=== PATIENT | male | born 1960 | race Caucasian/White ===

== ENCOUNTER 2025-01-07 12:08 | Inpatient (IN) | payer OTHER, SELFPAY ==
[2025-01-07] VITALS (14 sets, daily range): BP systolic 95–143; BP diastolic 69–102; BMI 28.0
--- NOTE | 2025-01-07 09:01 | ED.GENMED ---
History of Present Illness
General
Chief Complaint: Chest Pain
Source: patient
Exam Limitations: none
Time Seen by Provider: 01/07/25 08:56
History of Present Illness
History of Present Illness:
See MDM
Past History
Past History
ED Past Medical History: Cancer and HTN
ED Past Surgical History: Orthopedic
Social History
Tobacco: Non-smoker
Alcohol: None
Phy Exam
Physical Exam
Physical Exam:
See MDM
Scores
Heart Score for Chest Pain Patients
STEMI patient?: Yes
Course
Orders/Labs/Results
Orders:
Orders
01/07/25
Electrocardiogram (*1) Stat
Reason for Study: Chest Pain
Comment: DONE
01/07/25 09:02
CMP [Comprehensive Metabolic Panel] Urgent
Complete Blood Count/With Diff Urgent
PT/INR [Prothrombin Time] Urgent
PTT Urgent
Troponin I Urgent
01/07/25 09:07
Aspirin Chewable [Low Strength Aspirin] 324 mg .ROUTE .STK-MED ONE
Heparin 5,000 units .ROUTE .STK-MED ONE
Nitroglycerin Sublingual [Nitrostat (Sublingual)] 0.4 mg .ROUTE .STK-MED ONE
Ticagrelor [Brilinta] 180 mg .ROUTE .STK-MED ONE
01/07/25 09:10
Fentanyl Citrate/Pf [Sublimaze] 100 mcg .ROUTE .STK-MED ONE
Heparin 10,000 units .ROUTE .STK-MED ONE
Heparin 1000 Units/500 ml [Heparin] 1,000 units in 500 ml .ROUTE .STK-MED
Lidocaine HCl/Pf [Xylocaine-Mpf 1% Vial] 50 mg .ROUTE .STK-MED ONE
Midazolam HCl [Versed] 2 mg .ROUTE .STK-MED ONE
Verapamil Injectable [Isoptin/Verapamil Injection] 5 mg .ROUTE .STK-MED ONE
01/07/25 09:11
Heparin Sodium,Porcine/Ns/Pf [Heparin 2000 Units/1000 ml] 2,000 unit in 1,000 ml .ROUTE .STK-MED
Nitroglycerin [Tridil] 1,500 mcg .ROUTE .STK-MED ONE
01/07/25 09:34
Eptifibatide [Integrilin] 20 ml .ROUTE .STK-MED
01/07/25 10:05
Furosemide [Lasix] 40 mg .ROUTE .STK-MED ONE
01/07/25 10:19
Lidocaine HCl/Pf [Xylocaine-Mpf 1% Vial] 100 mg .ROUTE .STK-MED ONE
01/07/25 10:26
Heparin Sodium,Porcine/Ns/Pf [Heparin 2000 Units/1000 ml] 2,000 unit in 1,000 ml .ROUTE .STK-MED
01/07/25 10:43
Bell Person Consult Routine
Consulting Provider: Darin Orellana
Was physician already notified: Yes
Reason for consult: acute STEMI, impella
01/07/25 11:03
Heparin 10,000 units .ROUTE .STK-MED ONE
01/07/25 11:32
Lidocaine HCl/Pf [Xylocaine-Mpf 1% Vial] 100 mg .ROUTE .STK-MED ONE
01/07/25 11:47
Nitroglycerin 100 mg/250 ml [Nitroglycerin Premix] 100 mg in 250 ml .ROUTE .STK-MED
01/07/25 12:05
Lidocaine HCl/Pf [Xylocaine-Mpf 1% Vial] 50 mg .ROUTE .STK-MED ONE
Abnormal Lab Results
01/07/25 01/07/25 01/07/25
09:02 09:33 09:42
WBC 65.9 H* 10^3/uL
(4.8-10.8)
RBC 4.37 L 10^6/uL
(4.70-6.10)
Hgb 12.1 L g/dL
(13.0-18.0)
Hct 36.5 L %
(39.0-52.0)
Abs Immat Gran (auto) 0.3 H 10^3/uL
(0-0.05)
Absolute Neuts (auto) 10.6 H 10^3/uL
(1.4-6.5)
Absolute Lymphs (auto) 53.3 H 10^3/uL
(1.2-3.4)
Absolute Monos (auto) 1.3 H 10^3/uL
(0.1-0.6)
Neutrophils % 16.0 L %
(42.2-75.2)
Lymphocytes % 80.9 H %
(20.5-51.1)
Carbon Dioxide 20 L mmol/L
(22-30)
BUN 26 H mg/dl
(9-20)
Glucose 144 H mg/dl
(70-99)
Troponin I 0.329 H* ng/ml
Total Protein 5.5 L g/dl
(6.3-8.2)
Albumin 3.4 L g/dl
(3.5-5.0)
POC ACT Low Range 221 H Seconds 324 H Seconds
(116-155) (116-155)
01/07/25 01/07/25 01/07/25
10:10 10:55 11:10
WBC
RBC
Hgb
Hct
Abs Immat Gran (auto)
Absolute Neuts (auto)
Absolute Lymphs (auto)
Absolute Monos (auto)
Neutrophils %
Lymphocytes %
Carbon Dioxide
BUN
Glucose
Troponin I
Total Protein
Albumin
POC ACT Low Range 265 H Seconds 205 H Seconds 256 H Seconds
(116-155) (116-155) (116-155)
01/07/25 01/07/25
11:27 11:45
WBC
RBC
Hgb
Hct
Abs Immat Gran (auto)
Absolute Neuts (auto)
Absolute Lymphs (auto)
Absolute Monos (auto)
Neutrophils %
Lymphocytes %
Carbon Dioxide
BUN
Glucose
Troponin I
Total Protein
Albumin
POC ACT Low Range 274 H Seconds 207 H Seconds
(116-155) (116-155)
01/07/25 09:02
01/07/25 09:02
Vital Signs
Initial and Last Documented VS:
Initial Vital Signs
Temp Pulse Resp BP Pulse Ox
97.7 F 85 20 143/102 97
01/07/25 08:54 01/07/25 08:54 01/07/25 08:54 01/07/25 08:54 01/07/25 08:54
Last Documented Vital Signs
Temp Pulse Resp BP Pulse Ox
98.8 F 71 15 110/74 91
01/08/25 12:00 01/08/25 12:10 01/08/25 12:10 01/08/25 12:00 01/08/25 12:10
MDM/Problems Addressed
Differential Diagnosis Includes:
HPI and MDM Narrative:
64-year-old male presenting with intermittent chest discomfort described as 'gas pain' for the past month or so. It is worse with exertion but tends to resolve after 10 minutes. Patient noted the same discomfort while at work today at 8 AM. He is
worried because he got more significant around 8:30 AM. He came to the emergency department and a screening EKG was done immediately which showed concern for STEMI. He was brought back to the emergency room immediately. A STEMI alert was called
immediately and case discussed with cardiology who came to bedside immediately. Patient given aspirin, Brilinta, heparin bolus and nitroglycerin. The nitroglycerin is helping with his symptoms.
I did call his Zohra and updated her
Physical exam
General: Well appearing and non-toxic
HEENT: protecting airway
Neck: appears supple
CV: No evidence of cyanosis. Regular rate and rhythm
Resp: No accessory muscle use
Abd: Non-distended
Extremities: No deformities
Neuro: alert
Psych: Normal affect
Skin: Intact
Problems Addressed including Acute and Chronic Conditions affecting care:
1. STEMI
Acuity: acute
Prognosis: unstable
Details: Patient given aspirin, Brilinta and heparin. Nitroglycerin is helping with symptoms. Cardiology will bring to Unmanned Equipment Operator
Differential Diagnosis (but not limited to): Noncardiac chest pain, STEMI, dissection
Testing considered: Chest x-ray
Drug therapy (if applicable): OTC meds, please see d/c instruction regarding Rx drugs
Amount and/or Complexity of Data Reviewed
Clinical info obtained from: Patient
External data reviewed: N/A
Labs I independently reviewed (but not limited to): Leukocytosis but this is expected given CLL history
Radiology: N/A
Pulse Ox: not hypoxic
EKG independently reviewed: Sinus rhythm, normal axis, ST elevation anteriorly with reciprocal changes inferiorly
Rubber Production Machine Operator: Sinus rhythm
Critical Care: The high probability of a clinically significant, sudden or life threatening deterioration of the cardiovascular system(s) required my full and direct attention, intervention and personal management. The aggregate critical care time
was 31 minutes. This time is in addition to time spent performing reported procedures but includes the following:
[x] Data Review and interpretation
[x] Patient assessment and monitoring of vital signs
[x] Documentation
[x] Medication orders and management
Risk of Complication:
Social Determinants of health: Good social support
Discussed with other providers: Physician Aide
Escalation of Care includes Admit/Obs: Given the STEMI, will admit to Unmanned Equipment Operator
Occasional wrong word or 'sound a like' substitutions may have occurred due to the inherent limitations of voice recognition software. Read the chart carefully and recognize, using context, where substitutions have occurred.
*Critical Care Note
Total Time (30-74mins, 75-104mins- exclusive of procedures): 31 min
ED Attending Note
-
Portions of this chart may have been created with voice recognition software.� Occasional wrong word or��sound alike� substitutions may have occurred due to the inherent limitations of voice recognition software.
Discharge Plan
Departure
Patient Disposition: [facility]
Date of Disposition: 01/07/25
Time of Disposition: 09:06
Presentation/result/management discussed w/ accepting MD/DO: Physician Aide
Discharge Problem:
ST elevation (STEMI) myocardial infarction
Interventions
Interventions:
*Risk Screen - Suicide Last Done: 01/07/25 09:09
*General Assessment Last Done: 01/07/25 09:05
*Neglect/Abuse Screening Last Done: 01/07/25 09:10
*ED- Fall Risk Assessment Last Done: 01/07/25 09:32
*ED COVID-19 Vaccine History Last Done: 01/07/25 09:01
*Nursing Disposition Last Done: 01/07/25 09:15
ED- Cardiac Assessment Last Done: 01/07/25 09:05
Discharge Date and Time
Discharge Date/Time: 01/07/25 09:15
[2025-01-07 09:25] LABS: ALT (SGPT) 17 U/L (0-50); AST (SGOT) 22 U/L (17-59); Albumin 3.4 g/dl (3.5-5.0); Alkaline Phosphatase 106 U/L (38-126); Blood Urea Nitrogen 26 mg/dl (9-20); Calcium 8.8 mg/dl (8.4-10.2); Carbon Dioxide 20 mmol/L (22-30); Chloride 107 mmol/L (98-107); Estimated Creatinine Clearance 60 ml/min; Glucose 144 mg/dl (70-99); Hematocrit 36.5 % (39.0-52.0); Hemoglobin 12.1 g/dL (13.0-18.0); Mean Corp Hgb Conc. 33.2 g/dL (33.0-37.0); Mean Corpuscular Hgb 27.7 pg (27.0-31.0); Mean Corpuscular Volume 83.5 fL (80.0-94.0); Mean Platelet Volume 9.4 fL (7.4-10.4); Platelet Count 296 10^3/uL (130-400); Red Blood Cell Count 4.37 10^6/uL (4.70-6.10); Red Cell Dist. Width 14.5 % (11.5-14.5); Sodium 137 mmol/L (135-145); Total Bilirubin 0.5 mg/dl (0.2-1.3); Total Protein 5.5 g/dl (6.3-8.2); White Blood Cell Count 65.9 10^3/uL (4.8-10.8); eGFR > 60.00
[2025-01-07 09:26] LABS: INR 0.98; PT 13.5 Sec (11.4-14.6)
[2025-01-07 09:27] LABS: APTT 25.1 Sec (23.4-35.0)
[2025-01-07 09:29] LABS: ACT-LR - POC 150 Seconds (116-155)
[2025-01-07 09:40] LABS: ACT-LR - POC 221 Seconds (116-155)
[2025-01-07 09:40] LABS: Troponin I 0.329 ng/ml
[2025-01-07 09:48] LABS: % Basophils 0.4 % (0-2); % Eosinophils 0.4 % (0-6); % Immature Granulocytes 0.4 % (0-0.5); % Lymphocytes 80.9 % (20.5-51.1); % Monocytes 1.9 % (1.7-9.3); Absolute Basophils 0.2 10^3/uL (0-0.2); Absolute Eosinophils 0.3 10^3/uL (0-0.7); Absolute Immature Granulocytes 0.3 10^3/uL (0-0.05); Absolute Lymphocytes 53.3 10^3/uL (1.2-3.4); Absolute Monocytes 1.3 10^3/uL (0.1-0.6); Absolute Neutrophils 10.6 10^3/uL (1.4-6.5); Nucleated Red Blood Cells % 0 % (-)
[2025-01-07 09:51] LABS: ACT-LR - POC 324 Seconds (116-155)
[2025-01-07 10:20] LABS: ACT-LR - POC 265 Seconds (116-155)
--- NOTE | 2025-01-07 10:21 | HPS.HSE ---
Family Physician
-
Family Physician: Margarte Bernal
Oncologist: Curry Jane MD ([facility])
Chief Complaint
-
Anterior/lateral STEMI
History of Present Illness
64 yo WM h/o CLL, HTN, non smoker, social ETOH, father with [place] @70. He has been having epigastric pain for the last 4 weeks, this morning at work ([employer]) the pain returned and did not resolve. On arrival to ER CP 8/ radiating to b/l UE/neck
with 2 sl nitro down to 5/10. EKG with anterior/lateral KULWINDER. He was given heparin, brilinta, ASA and brought urgently to research lab assistant.
Medical History
Past Medical History
Past Medical History: Reports Cancer (CLL stage 3, Rituxan x 6 cycles 2013, c/b glomerulonephritis and nephrotic range proteinuria), HTN and Other (Prot)
Past Surgical History: Reports None
Social History
Tobacco: Non-smoker
Alcohol: Occasional
Living: With Family
Family History
Family History: CAD (father [place] 70)
Allergies / Home Medications
Allergies reflects when Allergies were last updated in [employer].
Home Medications with original date entered in [employer]
Allergy/Medication List:
Allergies
Allergy/AdvReac Type Severity Reaction Status Date / Time
No Known Allergies Allergy Unverified 01/07/25 08:53
�Medication �Instructions �Recorded �Confirmed �Type
Lactobacillus 1 cap PO DAILY 01/07/25 01/07/25 History
acidophil,plantar-Bifido no.7 15
billion cell capsule
allopurinol 200 mg tablet 200 mg PO DAILY 01/07/25 01/07/25 History
ascorbic acid (vitamin C) 1,000 mg 1 g PO DAILY 01/07/25 01/07/25 History
tablet (Vitamin C)
cholecalciferol (vitamin D3) 10 10 mcg PO DAILY 01/07/25 01/07/25 History
mcg (400 unit) capsule (Vitamin D3)
fish, borage, flaxseed oils-omega 1 cap PO DAILY 01/07/25 01/07/25 History
3,6,9 comb no.1 1,200 mg capsule
geriatric multivitamin-min 1 tab PO DAILY 01/07/25 01/07/25 History
hydralazine 25 mg tablet 25 mg PO TID 01/07/25 01/07/25 History
omega-3s 300 im-qfo-dvn-other 1 cap PO DAILY 01/07/25 01/07/25 History
sixet4s-etgm oil 1,000 mg capsule
([place]-3 Fish Oil)
omeprazole 10 mg capsule,delayed 10 mg PO DAILY 01/07/25 01/07/25 History
release
valsartan 160 mg tablet 160 mg PO DAILY 01/07/25 01/07/25 History
Review of Systems
-
Cardiac: Reports Chest Pain (03/13 on arrival to research lab assistant)
Physical Exam
Vital Signs
Vital Signs
Temp Pulse Resp BP Pulse Ox
97.7 F 81 15 129/96 95
01/07/25 08:54 01/07/25 09:01 01/07/25 09:01 01/07/25 09:12 01/07/25 09:05
Physical Exam
General: Pain (deferred as pt being preped and drapped for emergent procedure)
Laboratory Results
-
01/07/25 09:02
01/07/25 09:02
Laboratory Results
PT 13.5 Sec (11.4-14.6) 01/07/25 09:02
INR 0.98 01/07/25 09:02
APTT 25.1 Sec (23.4-35.0) 01/07/25 09:02
Total Bilirubin 0.5 mg/dl (0.2-1.3) 01/07/25 09:02
AST 22 U/L (17-59) 01/07/25 09:02
ALT 17 U/L (0-50) 01/07/25 09:02
Alkaline Phosphatase 106 U/L (38-126) 01/07/25 09:02
Troponin I 0.329 ng/ml H* 01/07/25 09:02
Data Reviewed
-
Medical Tests (Nuc Med, Echo, EKG etc): Report Reviewed by me
Impression/Plan
-
IMPRESSION:
Acute anterior lateral STEMI
occluded proximal LAD and RI post PCI
CLL
HTN
Elevated glucose
PLAN:
Admit IVU post procedure
serial troponin to peak
Echo today
DAPT ASA/Brilinta
initiate low dose BB add ACEi/ARB depending on EF
Check CVE, intiate high intensity statin
elevated glucose, check A1c
Cardiac rehab c/s
[2025-01-07 11:03] LABS: ACT-LR - POC 205 Seconds (116-155)
[2025-01-07 11:15] LABS: ACT-LR - POC 256 Seconds (116-155)
[2025-01-07 11:36] LABS: ACT-LR - POC 274 Seconds (116-155)
[2025-01-07 11:50] LABS: ACT-LR - POC 207 Seconds (116-155)
[2025-01-07 13:19] LABS: ACT-LR - POC 234 Seconds (116-155)
[2025-01-07 13:28] LABS: B.E. -0.3 mmol/L; HCO3 22.3 mmol/L (21-28); O2 Saturation % 97.9 % (94-98); PCO2 30 mmHg (35-48); PO2 82 mmHg (83-108); pH 7.48 (7.35-7.45)
[2025-01-07 13:29] LABS: Hematocrit 36.1 % (39.0-52.0); Hemoglobin 11.6 g/dL (13.0-18.0); Mean Corp Hgb Conc. 32.1 g/dL (33.0-37.0); Mean Corpuscular Hgb 27.3 pg (27.0-31.0); Mean Corpuscular Volume 84.9 fL (80.0-94.0); Mean Platelet Volume 9.5 fL (7.4-10.4); O2 Therapy 4L NC; Platelet Count 232 10^3/uL (130-400); Red Blood Cell Count 4.25 10^6/uL (4.70-6.10); Red Cell Dist. Width 14.6 % (11.5-14.5); White Blood Cell Count 61.8 10^3/uL (4.8-10.8)
--- NOTE | 2025-01-07 13:36 | ITS.CL.CATH ---
Dye Penetrant Testing Technician - Catheterization
Cardiac Catheterization
Procedure Report:
RIGHT AND LEFT HEART STUDY WITH CORONARY INTERVENTION
Date of Procedure: January 07, 2025
Referring: Dr. Rafiq Carter, [facility] Emergency Department
PROCEDURES:
1. Left heart catheterization with coronary angiography
2. Successful stenting at the ostium of the LAD with a 3.25 x 28 mm Xience stent and successful placement of an overlapping 3.5 x 18 mm distal to the initial stent
3. Successful stenting of ostial ramus intermedius with a 3.5 x 12 mm [place] stent
4. Successful stenting of mid left main with a 4.0 x 12 mm Christopher stent that was implanted at 20 nancy and postdilated with a 5.0 mm noncompliant balloon to high pressures
5. Placement of a Impella CP via right common femoral artery
6. Intravascular ultrasound with Eyak-Eye IVUS of left main and left anterior descending
INDICATION: This is a 64-year-old gentleman with a past medical history notable for CLL and hypertension. He had experienced epigastric discomfort over the past month or so and was actually scheduled to see GI. This morning he developed recurring
epigastric discomfort with worsened symptoms that did not spontaneously resolve. He presented to [facility] with an electrocardiogram suggestive of an evolving anterolateral wall myocardial infarction and he was referred for emergent
coronary angiography.
ACCESS: Right radial artery, 6 [place] sheath. An Impella CP was placed during the procedure from the right common femoral artery
HEMODYNAMICS : mmHg
AO (s/d, m) : 133/81, 69
LV (s/d) : 123/31
LVEDP : 55
CORONARY FINDINGS
Dominance: Left
LEFT MAIN: Large left main. Imaging in RO cranial view is notable for contrast filling of a possible disrupted plaque.
LEFT ANTERIOR DESCENDIN% occluded proximally with the distal vessel noted to fill via left to left and faint right to left collaterals
RAMUS: 95% ostial stenosis with filling defect suggestive of thrombus. There is SELVIN I flow distally
CIRCUMFLEX: Large-caliber dominant circumflex
RIGHT CORONARY ARTERY: Subselective cannulation and critically ill patient
VENTRICULOGRAPHY: Not done
ANGIOPLASTY PROCEDURE DETAIL: Immediately after obtaining the diagnostic angiogram the decision was made to proceed with revascularization of culprit stenosis in the proximal LAD and ramus. The origin of the left main was cannulated with a 6 [place]
EBU 3.75 guiding catheter. Intravenous heparin was administered and double bolus Integrilin was given according to standard double bolus protocol. The ACT was monitored throughout the procedure.
A BMW guidewire crossed the occluded segment of the proximal LAD with a mild degree of difficulty and was advanced into the distal vessel. Balloon predilation was performed with a 2.0 mm balloon and anterograde flow was restored into the mid LAD.
The apical LAD was 100% occluded beyond a terminal diagonal branch with faint filling of the distal vessel from left to left collaterals. A 3.25 x 28 mm Xience stent was advanced over the guidewire position with angiographic and fluoroscopic
guidance. The stent was implanted at nominal pressures. A second BMW guidewire was then advanced across the ostial stenosis in the ramus intermedius and the ostium of this vessel was stented with a 3.5 x 12 mm Xience stent at nominal pressures.
SELVIN-3 grade flow was restored into the intermedius and LAD.
The patient was complaining of being very short of breath on 100% nonrebreather with O2 sats 88-90%. His LVEDP measured 55 mmHg. At this point we elected to place an Impella for hemodynamic support even though systolic blood pressures remained in
the low 100's. Anesthesia was notified and provided additional airway monitoring and support.
Arterial access with ultrasound guidance and micropuncture. Angiography through the micropuncture catheter revealed a large iliofemoral system. A 6 [place] sheath was inserted. A stiff J-tip 0.035 guidewire was advanced into the descending aorta.
The right common femoral arteriotomy site was serially dilated and was followed by placement of the 14 [place] Impella sheath. A pigtail catheter was then advanced over the stiff wire and positioned just above the aortic valve. The aortic leaflets
were crossed and a pigtail catheter was advanced into the mid left ventricle. A 0.018 inch support wire with a very generous curved tip was then advanced the pigtail catheter and into the mid left ventricle. The pigtail catheter was removed. An
Impella CP catheter was then brought to the table and advanced over the 0.018 wire to the mid left ventricle. The Impella later was activated providing immediate hemodynamic support.
Attention was then turned back to the LAD. Intravascular ultrasound was performed using an Eyak eye catheter that was advanced across the stented segment in the LAD and into the mid LAD beyond the stents. There was a significant plaque burden in
significant luminal narrowing in the mid LAD beyond the stented segment. The LAD stents were well opposed but undersized. The stent appeared to extend back to the ostium of the LAD. The proximal LAD luminal dimensions measured up to 4.5 mm while
the distal LAD luminal diameter measured up to 4 mm. The decision was made to place another stent distal to the ostial to mid LAD stent given the large plaque burden small lumen noted in the mid LAD. A 3.5 x 18 mm Xience stent was positioned
overlapping and distal to the more proximal LAD stent wire was deployed at nominal pressures. That stent was postdilated with a 3.5 mm noncompliant balloon while the more proximal stents were postdilated with a 4.0 mm noncompliant balloon to high
pressures.
The linear filling defect at the Of the left main persisted and ultimately decision was made to cover that segment with a 4.0 x 8 mm [place] stent in the left main that was implanted at high pressures and postdilated with a 5.0 x 12 mm noncompliant
balloon to high pressures with a nice angiographic result
At this point, venous access was obtained and a right heart catheterization was performed as outlined below.
HEMODYNAMICS : mmHg
RA (m) : 18
RV (s/d) : 54/14, 20
PA (s/d, m) : 50/32, 38
PCWP (m) : 35
Cardiac Output: 4.3 L / min and Cardiac Index: 2.1 L/ min / m-2
RADIATION SUMMARY: Fluoro Time (min): 33, Dose (mGy): 3765, DAP (Gy.cm2) : 172
CONCLUSIONS
1. Acute evolving anterior lateral wall myocardial infarction. 100% occlusion of the proximal LAD and thrombus in the ostial ramus with 95% stenosis. Successful stenting of the LAD with overlapping 3.25 x 28 mm and 3.5 x 18 mm Xience stents. The
LAD stents were post dilated distally to high pressures with a 3.5 mm NC balloon and throughout the proximal LAD with a 4.0 mm NC balloon. The ostial ramus was stented with a 3.5 mm NC balloon.
2. Cardiogenic shock with respiratory failure and reduced cardiac output / index. Successful placement of Impella CP via right common femoral access.
RECOMMENDATIONS
1. Will leave Impella at P5 overnight
2. Uninterrupted dual antiplatelet therapy
3. Trend serial troponin levels. Obtain HgbA1c and fasting lipid profile
4. Echocardiogram
5. Further management decisions will be made over the next several days with addition of guideline directed medical therapy for his coronary artery disease and presumed LV dysfunction
[2025-01-07 13:38] LABS: Fibrinogen 602 MG/DL (199-459); PT 14.7 Sec (11.4-14.6)
[2025-01-07 13:41] LABS: Lactic Acid 1.4 mmol/L (0.7-2.0)
[2025-01-07 13:45] LABS: ALT (SGPT) 122 U/L (0-50); Albumin 3.2 g/dl (3.5-5.0); Alkaline Phosphatase 105 U/L (38-126); Blood Urea Nitrogen 28 mg/dl (9-20); Calcium 8.4 mg/dl (8.4-10.2); Carbon Dioxide 29 mmol/L (22-30); Chloride 103 mmol/L (98-107); Estimated Creatinine Clearance 56 ml/min; Glucose 151 mg/dl (70-99); Magnesium 1.7 mg/dl (1.6-2.3); Potassium 3.8 mmol/L (3.5-5.1); Sodium 136 mmol/L (135-145); Total Bilirubin 0.7 mg/dl (0.2-1.3); Total Protein 5.5 g/dl (6.3-8.2); eGFR 56.48
[2025-01-07] MEDS: NSS 500 VEN SHEATH (14:08)
--- NOTE | 2025-01-07 14:08 | W.PN.UPDATE ---
Update Note
Progress Note Update
Checked on patient in CVICU. Impella running at P5. Nitro gtt running at 15. BP 130/88. No chest pain. Bedside echo being done now. Potassium 3.8 and magnesium 1.7, ordered KCl 40 meq and magnesium oxide 500 mg x1 now. Initial Troponin 0.329 and 2nd
Troponin pending. Cre was 1.3 pre-cath and is now 1.4. Lasix 40 mg IV BID ordered, cath report pending.
--- NOTE | 2025-01-07 14:14 | PTCARENOTE ---
assumed care of pt from CCL RN, Pt is AA0x4, sinus rhythm on tele w HR 90-100, pt denies CP, + peripheral pulses, no edema noted. Right femoral impella w drainage to dressing, dressing changed by Dr. Sanchez. Impella set to P7 then dropped to P5 per
Dr. Sanchez. Femoral arterial sheath leveled and zeroed, BP 120's-150's/70's, right femoral venous sheath w swan in place, CO 6.71 CI 3.20, CVP 2. Lungs diminished, dry cough noted. Pox 96% on 4L NC. +bs, denies nausea, pt voided clear yellow. PIV x2
to left arm. Post procedure EKG, labs, CXR and echo completed. Family updated. Plan of care reviewed w the pt and questions encouraged.
[2025-01-07 14:20] LABS: AST (SGOT) 1316 U/L (17-59); LDH 1875 U/L (120-246)
--- NOTE | 2025-01-07 14:26 | CON.INTV ---
Consultation
Consultation Request
Date/Time Consultation Requested: 01/07/2025
Date/Time Consultation Performed: 01/07/2026 3 pm
Requesting Provider: Bronwyn Reynolds
Performing Provider: Darin Orellana
Reason for Consultation: Acute [facility]
Medical History
-
Chief Complaint: Upper abdomen bloating
History of Present Illness:
Very pleasant 69-year-old gentleman with history of CLL, not on any current treatment, presented to the emergency room with recurrent episodes of upper abdominal pain, feeling bloated. Patient reportedly having these episodes over last few weeks
but they will be intermittent. Today he developed the episode and it did not improve and subsequently patient developed diaphoresis and decided to seek medical care. In the emergency room patient found to have anterior lateral ST elevation and was
taken to [facility]. Postprocedure patient was brought to cardiovascular ICU with Impella device in place. Press Operator [employer] consultation was requested for further management.
Past Medical History
Past Medical History: HTN and Other (GERD, CLL)
Social History
Tobacco: Non-smoker
Alcohol: Other (Rare use of alcohol.)
Family History
Family History: Other (Father had history of myocardial infarction at age 70)
Allergies / Home Medications
Allergies
Allergy/AdvReac Type Severity Reaction Status Date / Time
No Known Allergies Allergy Unverified 01/07/25 08:53
Review of Systems
-
Hematologic/Lymphatic: Other (All 14 systems reviewed and negative except as stated above in the history of present illness.)
Vitals / Labs / Diagnostic Testing
Vital Signs
Temp Pulse Resp BP Pulse Ox
99.1 F 96 20 130/88 97
01/07/25 14:00 01/07/25 14:02 01/07/25 14:02 01/07/25 14:02 01/07/25 14:02
Lab Data
01/07/25 13:16
01/07/25 13:16
Laboratory Results
01/07/25 01/07/25
09:02 13:16
PT 13.5 14.7 H
INR 0.98 1.10
APTT 25.1
pH 7.48 H
pCO2 30 L
pO2 82 L
HCO3 22.3
O2 Delivery Level 4l nc
Diagnostic Testing:
Physical Exam
-
HEENT: Normocephalic
Cardiovascular: S1/S2
Respiratory: Clear
GI: Soft
Neurology: Awake
Skin: Warm
General: Comfortable
Assessment
-
#1. Acute ST elevation VA
-S/p PCI, currently Impella device in place, nitro drip infusing
-Patient chest pain-free during evaluation
-Management per cardiology service, currently on aspirin, Brilinta and statins
#2. History of CLL
-Patient reports prior treatment and currently being monitored closely
-Continue to monitor white count
-Patient lying flat in bed, in no acute distress
-Saturating close to 100% on 2 L
-Hemodynamically stable, not on any pressor therapy
-Impella in place
-Patient is chest pain-free
-No prior known history of pulmonary disease
-Use inhalers on an as-needed basis
We will follow
Critical Care time 30 mins -- The patient is admitted for acute critical illness for the treatment of vital organ failure and/or prevention of further life-threatening conditions. Total care includes time spent in review of history, physical exam,
medications, hemodynamic/ventilator parameters, laboratory data, imaging and discussion with house staff, pharmacy, respiratory therapy, test architect, and nursing.
[2025-01-07 14:39] LABS: Troponin I > 400.000 ng/ml
[2025-01-07 15:04] LABS: ACT-LR - POC 153 Seconds (116-155)
[2025-01-07] MEDS: LASIX 40 MG IV (15:15)
[2025-01-07] MEDS: MAGNESIUM OXIDE 500 MG PO (15:15)
[2025-01-07] MEDS: KCL 40 MEQ PO (15:15)
[2025-01-07] MEDS: HEPARIN 25000 UNITS/250 ML IV (15:31)
[2025-01-07] MEDS: SODIUM BICARBONATE 1025 MEQ INF CATH (15:37)
--- NOTE | 2025-01-07 16:22 | CM ---
Chart reviewed. Patient is independent of ADLS, lives with his in a 2 [address], 4 KULWINDER, 0 DME. Plan is for the patient to return home. CM to follow
--- NOTE | 2025-01-07 16:23 | CM ---
Pricing on Brilinta through the patient's [facility], ID# [id number] is $50 for a 30 day supply. The patient qualifies for a $5 copay card. I will place a free 30 day coupon in the patient's red discharge folder. Brilinta is in stock at the
patient's [facility].
--- NOTE | 2025-01-07 16:30 | PTCARENOTE ---
Patient reassessed. NSR BP 122/79 HR 75 POX 96% 4L NC. BM noted. Voiding clear yellow urine. TR band removed @ 1630 w/o complication. Impella maintained at P-5 as ordered.
[2025-01-07] MEDS: LIPITOR 80 MG PO (19:03)
[2025-01-07] MEDS: LOPRESSOR 12.5 MG PO (19:48)
[2025-01-07] MEDS: BRILINTA 90 MG PO (19:48)
[2025-01-07] MEDS: MORPHINE SULFATE 2 MG IV (19:49)
--- NOTE | 2025-01-07 20:30 | PTCARENOTE ---
Patient received resting in bed. Patient A+A+Ox3. No neurological deficits noted. IV Morphine 2mg for c/o 10 lower back pain - Positive relief provided. O2 at 3L via NC. SpO2 97%. Lungs clear. No adventitious breath sounds noted. Sinus
Rhythm. Occasional PVC's. Heart rate 70's. Impella Ventricular Assist Device intact - Assessments as documented. Patient with no c/o chest pain, pressure or discomfort. Normoactive bowel sounds. No BM. No c/o nausea. No vomiting. Voiding
yellow, clear urine. Right femoral Cordis/[place]/A-Line - A-Line, PAP, CVP - Pressure bag/Saline flush - Flush without difficulty - Zeroed and calibrated - Waveforms within normal limits. C.O. 5.72 C.I. 2.72 SVR 1160 PAP 41/19 (26) CVP 4.
Right femoral dressing intact - Old drainage noted under dressing. Bedrest. Right leg straight at all times. Positive right Dorsalis pedis pulse. No c/o pain, discomfort, numbness or tingling to right lower extremity. Right wrist - s/p TR Band
- Slightly edematous with ecchymosis - Positive right radial pulse - No c/o pain, discomfort, numbness or tingling - Positive circulation, sensation and mobility to right upper extremity. Assessment as documented.
--- NOTE | 2025-01-07 20:50 | PTCARENOTE ---
Patient's manager cardiac cath displaying 8 beat run VT. Heart rate 80's. Blood pressure 113/83 (94). Patient resting in bed. No c/o chest pain, pressure or discomfort. Assessment as documented.
[2025-01-07 21:06] LABS: B.E. 0.7 mmol/L; HCO3 24.2 mmol/L (21-28); Ionized Calcium 1.15 mMOL/L (1.15-1.33); O2 Saturation % 99.3 % (94-98); PCO2 34 mmHg (35-48); PO2 123 mmHg (83-108); Potassium 3.9 mMOL/L (3.5-5.1); pH 7.46 (7.35-7.45)
[2025-01-07 21:09] LABS: Hematocrit 33.3 % (39.0-52.0); Hemoglobin 11.1 g/dL (13.0-18.0); Mean Corp Hgb Conc. 33.3 g/dL (33.0-37.0); Mean Corpuscular Hgb 28.2 pg (27.0-31.0); Mean Corpuscular Volume 84.5 fL (80.0-94.0); Mean Platelet Volume 9.4 fL (7.4-10.4); Platelet Count 225 10^3/uL (130-400); Red Blood Cell Count 3.94 10^6/uL (4.70-6.10); Red Cell Dist. Width 14.6 % (11.5-14.5); White Blood Cell Count 54.1 10^3/uL (4.8-10.8)
[2025-01-07 21:17] LABS: APTT 30.6 Sec (23.4-35.0); PT 14.7 Sec (11.4-14.6)
[2025-01-07 21:19] LABS: Lactic Acid 0.8 mmol/L (0.7-2.0)
[2025-01-07 21:25] LABS: ALT (SGPT) 150 U/L (0-50); Albumin 2.7 g/dl (3.5-5.0); Alkaline Phosphatase 82 U/L (38-126); Blood Urea Nitrogen 28 mg/dl (9-20); Calcium 8.2 mg/dl (8.4-10.2); Carbon Dioxide 27 mmol/L (22-30); Chloride 104 mmol/L (98-107); Estimated Creatinine Clearance 60 ml/min; Glucose 128 mg/dl (70-99); Potassium 3.9 mmol/L (3.5-5.1); Sodium 133 mmol/L (135-145); Total Bilirubin 0.6 mg/dl (0.2-1.3); Total Protein 4.4 g/dl (6.3-8.2); eGFR > 60.00
[2025-01-07] MEDS: MYLICON 160 MG PO (21:25)
--- NOTE | 2025-01-07 21:30 | PTCARENOTE ---
PTT 30.6. IV Heparin gtt rate increased by 200 units/hr per protocol for Impella. Now infusing at 900 units/hr (9 ml/hr). PTT 6hrs after rate change. No further changes from previous assessment.
[2025-01-07 21:54] LABS: Troponin I > 400.000 ng/ml
[2025-01-07 22:04] LABS: AST (SGOT) 1410 U/L (17-59)
[2025-01-07 22:05] LABS: LDH 2355 U/L (120-246)
[2025-01-07] MEDS: KCL 20 MEQ PO (22:35)
[2025-01-07] MEDS: CALCIUM GLUCONATE 100 IV (22:35)
--- NOTE | 2025-01-07 23:00 | PTCARENOTE ---
Labs sent. K 3.9 KCL 20 mEq PO ordered by PA and given without difficulty. Ionized Calcium 1.15 - Calcium Gluconate 2 gram/100 ml IV ordered by PA and administered without difficulty. C.O. 5.69 C.I. 2.71 SVR 1209 PAP 46/25 (32) CVP 5.
Patient resting in bed listening to music. Assessment/Interventions as documented.
[2025-01-07] MEDS: ROXICODONE 5 MG PO (23:03)
[2025-01-07] MEDS: MAALOX 30 ML PO (23:29)
[2025-01-07] MEDS: PEPCID 20 MG PO (23:34)
[2025-01-08] VITALS (29 sets, daily range): BP systolic 95–143; BP diastolic 68–100; BMI 27.8
[2025-01-08] MEDS: MORPHINE SULFATE 2 MG IV ×4 (00:29→13:14)
--- NOTE | 2025-01-08 00:30 | PTCARENOTE ---
Patient A+A+Ox3. No neurological deficits noted. Impella intact. Patient with c/o upset stomach - Maalox 30 ml PO and Pepcid 20 mg PO ordered by PA and given without difficulty. Roxicodone 5 mg PO for pain management - Lower back pain. C.O.
6.44 C.I. 3.07 SVR 1006 PAP 53/24 (34) CVP 5.
Assessment/Interventions as documented.
[2025-01-08] MEDS: ROXICODONE 5 MG PO ×3 (03:03→13:13)
[2025-01-08] MEDS: NSS 500 VEN SHEATH (03:05)
--- NOTE | 2025-01-08 03:15 | PTCARENOTE ---
IV morphine 2mg and Roxicodone 5 mg PO for pain management - Lower back pain. No c/o chest pain, pressure or discomfort. Patient A+A+Ox3. No neurological deficits noted. C.O. 6.15 C.I. 2.93 SVR 1157 PAP 49/21 (31) CVP 5.
Assessment/Interventions as documented.
[2025-01-08 04:19] LABS: Hematocrit 31.2 % (39.0-52.0); Mean Corp Hgb Conc. 32.1 g/dL (33.0-37.0); Mean Corpuscular Hgb 27.5 pg (27.0-31.0); Mean Platelet Volume 9.6 fL (7.4-10.4); Platelet Count 225 10^3/uL (130-400); Red Blood Cell Count 3.63 10^6/uL (4.70-6.10); Red Cell Dist. Width 14.6 % (11.5-14.5); White Blood Cell Count 56.8 10^3/uL (4.8-10.8)
[2025-01-08 04:34] LABS: INR 1.11; PT 14.8 Sec (11.4-14.6)
[2025-01-08 04:35] LABS: APTT 34.9 Sec (23.4-35.0); Fibrinogen 580 MG/DL (199-459)
[2025-01-08 04:37] LABS: D-Dimer 1.21 ug/mlFEU (0.00-0.50)
[2025-01-08 04:38] LABS: Lactic Acid 0.7 mmol/L (0.7-2.0)
[2025-01-08 05:01] LABS: ALT (SGPT) 135 U/L (0-50); AST (SGOT) 1036 U/L (17-59); Albumin 2.6 g/dl (3.5-5.0); Alkaline Phosphatase 75 U/L (38-126); Blood Urea Nitrogen 30 mg/dl (9-20); Calcium 8.6 mg/dl (8.4-10.2); Carbon Dioxide 29 mmol/L (22-30); Chloride 104 mmol/L (98-107); Estimated Creatinine Clearance 56 ml/min; Glucose 124 mg/dl (70-99); HDL Cholesterol 39 mg/dl; LDH 2252 U/L (120-246); LDL Cholesterol, Calculated 83 mg/dl; Magnesium 1.8 mg/dl (1.6-2.3); Potassium 4.1 mmol/L (3.5-5.1); Sodium 133 mmol/L (135-145); Total Bilirubin 0.5 mg/dl (0.2-1.3); Total Cholesterol 142 mg/dl (50-199); Total Protein 4.4 g/dl (6.3-8.2); Triglyceride 103 mg/dl (10-149); Very Low Density Lipoprotein 20 mg/dl (0-30); eGFR 56.48
[2025-01-08] MEDS: MAGNESIUM OXIDE 500 MG PO (06:03)
--- NOTE | 2025-01-08 06:30 | PTCARENOTE ---
Patient resting in bed, dozing intermittently. No c/o pain or discomfort. Most recent PTT 34.9 - IV Heparin rate increased by 200 units/hr - Now infusing at 1100 units/hr (11 ml/hr). MAG 1.8 - Magnesium 500 mg PO ordered and given without
difficulty. C.O. 6.38 C.I. 3.04 SVR 953 PAP 57/27 (38) CVP 9. Assessment/Interventions as documented.
[2025-01-08] MEDS: BRILINTA 90 MG PO ×2 (07:21→20:39)
[2025-01-08] MEDS: PROTONIX 40 MG PO (07:21)
[2025-01-08] MEDS: LASIX 40 MG IV ×2 (07:22→14:15)
[2025-01-08] MEDS: LOW STRENGTH ASPIRIN 81 MG PO (07:22)
[2025-01-08] MEDS: PEPCID 20 MG PO (07:44)
[2025-01-08] MEDS: LOPRESSOR 12.5 MG PO ×2 (07:44→20:39)
[2025-01-08 07:49] LABS: % Basophils 0.2 % (0-2); % Immature Granulocytes 0.5 % (0-0.5); % Monocytes 3.8 % (1.7-9.3); % Neutrophils 23.5 % (42.2-75.2); Absolute Basophils 0.1 10^3/uL (0-0.2); Absolute Immature Granulocytes 0.3 10^3/uL (0-0.05); Absolute Lymphocytes 40.9 10^3/uL (1.2-3.4); Absolute Monocytes 2.1 10^3/uL (0.1-0.6); Absolute Neutrophils 13.3 10^3/uL (1.4-6.5); Nucleated Red Blood Cells % 0 % (-)
--- NOTE | 2025-01-08 08:00 | PTCARENOTE ---
Patient relieved from RN @0700. Patient lying in bed w/ call bed in reach. AAOx3. NSR w/ occasional PVC's and PAC's. Heart sounds audible. BP 108/78 HR 70's. PAP 67/29 CVP 9. Radial and pedal pulses present bilaterally. trace edema on right
hand noted. Right femoral venous sheath and Impella CP @ P-[address] POX 93% 2L NC. Lungs clear and diminished in bases bilaterally. Bowel sounds hyperactive. Patient complains of gas Voiding clear yellow urine in urinal. Right groin
puncture dressing intact w/ small old drainage. Right femoral Cordis/[place]/A-line in place. Left hand and AC PIV patent and intact. Heparin infusing per protocol. Patient complains of pain 8/10 on lower back. 5 mg Zandra given see MAR for details.
Plan of care reviewed w/ patient and questions encouraged.
--- NOTE | 2025-01-08 09:33 | W.PN.CARDCBS ---
Addendum entered and electronically signed by Ivis Fan PA-C 01/08/25 16:05:
Pt also has diagnosis of acute systolic heart failure
Addendum entered and electronically signed by Axel Dukes MD 01/08/25 11:18:
64-year-old man with CLL, hypertension, GERD, gout admitted with acute anterior NC and cardiogenic shock necessitating primary PCI and Impella placement. Troponin greater than 400.
Cardiac catheterization 01/07/2025: LVEDP 55, possible disrupted left main plaque, 100% proximal LAD, distal left to left and right to left collaterals, 95% ostial ramus with thrombus, dominant circumflex, no obvious circumflex disease, overlapping
3.25 and 3.5 Xience stents to LAD, stent to ostial ramus, Impella placed. Mid to distal LAD was probably APPLICATIONS MANAGER and appears to be not amenable to revascularization. Suspected dissection of left main
He is comfortable at present, some back pain
Medications: IV nitro, IV heparin, Brilinta 90 twice daily, aspirin 81 mg a day, metoprolol tartrate 12.5 twice daily, pantoprazole, furosemide 40 IV twice daily, atorvastatin 80 mg a day on hold, Pepcid 20 mg a day
Impella at P5, 110/72, pulse 74, respiratory 13, 37.1, pulmonary artery systolic pressure 40s to 50s, diastolic 17-28, cardiac index as of 915 - 2.5, respiratory rate 12, no distress, lungs clear, regular rate and rhythm, pulses palpable right
groin intact, pulses of right lower extremity are very good, no murmurs
ECG anterior NC, long QT, T wave inversions with some ST elevation in V2-V4, biatrial enlargement
White count 56.8 with CLL, hemoglobin 10 platelets 225, ABG last night 7.46, pCO2 34, pO2 123, bicarb 24, mixed venous gas pending, sodium 133, BUN/creatinine 31.4, unchanged, ALT 135, AST 1036, was 1410, troponin 359 had been 400 x 2, was 0.3 on
admission, LDL is 83
Echo: EF 20-25%, intraventricular thrombus not excluded, all in place, MAC, mild aortic regurgitation, normal right heart, could not determine pulmonary artery pressure apex and periapical segments akinetic severe hyporemaining
Impression:
Acute ST segment elevation NC with occluded proximal LAD at subtotally occluded ramus, presumed APPLICATIONS MANAGER of mid LAD, left dominant
Cardiogenic shock, improved but with Impella in place
Hypertension
Gout
Hyperlipidemia
CLL
Plan:
At present he looks very well, but with Impella at P5 and pulmonary hypertension with elevated pulmonary artery diastolic pressure
Will discuss with interventional cardiology as to duration of Impella support.
Will slowly try to initiate GDMT
Okay to continue atorvastatin, AST is probably cardiac rather than hepatic in origin.
Continue heparin, IV nitro, etc.
Original Note:
Today's Communication / Plan
-
Continue IV heparin, dual antiplatelet therapy, beta-saravanan
Attempt to wean Impella as hemodynamics allow
Eventual GDMT as blood pressure and renal function allow
Close monitoring of laboratory studies, hemoglobin, electrolytes
Continue to monitor and trend troponin
Hold atorvastatin secondary to LFT abnormality
Impression / Plan
-
Family Physician: Margaret Bernal
Oncologist: Curry Jane MD ([facility])
Care Professional: None prior to admission, initial consult Axel Sanchez
Impression:
Presented 01/07/2025 with waxing and waning epigastric discomfort and chest pain
Acute ST elevation anterolateral wall NC
s/p mid left main with a 4.0 x 12 mm Brighton stent (01/07/2025)
s/p ostial LAD 3.25 x 28 mm Xience stent and overlapping 3.5 x 18 mm distal to the initial stent (01/07/2025)
s/p ostial ramus intermedius with a 3.5 x 12 mm Christopher stent (01/07/2025)
Impella device implant 01/07/2025
Significantly elevated troponin, greater than 400
Ischemic cardiomyopathy, EF 20 to 25%
Elevated LFTs
CLL stage 3, Rituxan x 6 cycles 2013
Hypertension
GERD
Gout
Cardiac catheterization 01/07/2025: Dominance: Left. LEFT MAIN: Large left main. Imaging in RO cranial view is notable for contrast filling of a possible disrupted plaque, s/p mid left main with a 4.0 x 12 mm Brighton stent.
LEFT ANTERIOR DESCENDIN% occluded proximally with the distal vessel noted to fill via left to left and faint right to left collaterals, s/p ostial LAD 3.25 x 28 mm Xience stent and overlapping 3.5 x 18 mm distal to the initial stent
RAMUS: 95% ostial stenosis with filling defect suggestive of thrombus. s/p ostial ramus intermedius with a 3.5 x 12 mm Brighton stent
CIRCUMFLEX: Large-caliber dominant circumflex
RIGHT CORONARY ARTERY: Subselective cannulation and critically ill patient
HEMODYNAMICS : mmHg AO (s/d, m) : 133/81, 69; LV (s/d) : 123/31; LVEDP : 55
Echo 01/07/2025: EF 20 to 25%, thrombus adherent to mid inferoseptal and mid inferior wall cannot be excluded. Impella in place, 3.7 cm from leaflets. Mild AI with indwelling Impella
Plan:
Presented 01/07/2025 with waxing and waning epigastric discomfort and chest pain and was found to have abnormal EKG concerning for evolving anterolateral NC. Patient was referred for emergent catheterization/STEMI alert
Patient overall is doing remarkably well. Notes improved epigastric and chest discomfort. Off all drips except heparin
Acute ST elevation anterolateral wall NC
-s/p mid left main with a 4.0 x 12 mm Christopher stent, s/p ostial LAD 3.25 x 28 mm Xience stent and overlapping 3.5 x 18 mm distal to the initial stent, and s/p ostial ramus intermedius with a 3.5 x 12 mm Christopher stent (01/07/2025)
-Troponin peaked at greater than 400, continue to monitor and trend
-Indwelling Impella device implant 01/07/2025, running at P5; consider weaning to P2 if able
-Continue IV heparin
-EKG from morning of 01/08/2025 01/08/2025 reviewed which shows evolving anterior lateral ST-T wave abnormality consistent with repolarization abnormality from recent NC
-Dual antiplatelet therapy with aspirin and Brilinta for minimum of 1 year, platelets stable at 225,000, Hgb 10.0
-Continue pantoprazole
-Prestatin lipids TC 142, HDL 39, LDL 83, triglycerides 103, started on high intensity atorvastatin; would hold given significant LFT elevation
-Hemoglobin A1c pending
Ischemic cardiomyopathy, EF 20 to 25%
-Continue Lopressor
-Continue Lasix 40 mg IV twice daily
-Creat 1.3-1.4 range. Continue to monitor and trend
-Keep potassium greater than 4, magnesium greater than 2
-Eventual GDMT as blood pressure and renal function allow. Currently indwelling Impella support
-Monitor closely on telemetry, PVCs noted with occasional short runs of NSVT which seem to improve improved with repletion of electrolytes
Abnormal LFTs consistent with shock a liver
CLL with prior Rituxan treatment 2013. Followed by heme-onc at [facility]
Very detailed conversation with patient regarding events of last 24 hours including results of testing, education, treatment plan and decision, [id number] encounter and documentation
Will discuss with patient's as well upon her arrival.
Nursing also updated
HPI 01/07/2025:
64 yo WM h/o CLL, HTN, non smoker, social ETOH, father with NC @70. He has been having epigastric pain for the last 4 weeks, this morning at work ([employer]) the pain returned and did not resolve. On arrival to ER CP 8/10 radiating to b/l UE/neck
with 2 sl nitro down to 5/10. EKG with anterior/lateral KULWINDER. He was given heparin, brilinta, ASA and brought urgently to cath lab nurse.
Progress Note - Care Professional
Subjective
Date of Service: January 08, 2025
Patient seen and examined. Patient resting comfortably in bed. Patient notes resolved epigastric and chest discomfort.
Impella device intact
Objective
Labs:
01/08/25 04:00
01/08/25 03:59
Labs
Hgb 10.0 g/dL (13.0-18.0) L 01/08/25 04:00
Hct 31.2 % (39.0-52.0) L 01/08/25 04:00
Plt Count 225 10^3/uL (130-400) 01/08/25 04:00
PT 14.8 Sec (11.4-14.6) H 01/08/25 03:59
INR 1.11 01/08/25 03:59
APTT 34.9 Sec (23.4-35.0) 01/08/25 03:59
Sodium 133 mmol/L (135-145) L 01/08/25 03:59
Potassium 4.1 mmol/L (3.5-5.1) 01/08/25 03:59
BUN 30 mg/dl (9-20) H 01/08/25 03:59
Creatinine 1.4 mg/dL (0.7-1.3) H 01/08/25 03:59
Glucose 124 mg/dl (70-99) H 01/08/25 03:59
Troponins
01/07/25 01/07/25 01/07/25
09:02 13:16 20:54
Troponin I 0.329 H* > 400.000 H* D > 400.000 H*
01/08/25
04:00
Troponin I 359.000 H*
Vital Signs and I&O:
Vital Signs
Temp Pulse Resp BP Pulse Ox
98.7 F 67 14 105/73 94
01/08/25 09:00 01/08/25 09:08 01/08/25 09:08 01/08/25 09:08 01/08/25 09:08
Vital Signs
Temp Pulse Resp BP Pulse Ox
98.7 F 67 14 105/73 94
01/08/25 09:00 01/08/25 09:08 01/08/25 09:08 01/08/25 09:08 01/08/25 09:08
Intake & Output
01/06/25 01/07/25 01/08/25 01/09/25
06:59 06:59 06:59 06:59
Intake Total 1620.1 / 1661.1 393 / 393
Output Total 1600 / 1600 200 / 200
Balance 20.1 / 61.1 193 / 193
Physical Exam
Physical Exam
GEN: No distress, awake, Ox3, lying in bed
HEENT: supple, anicteric, mmm
LUNGS: CTA anteriorly, no wheezes/rales
CV: Reg, S1/S2, no murmur, soft hum of Impella device noted
ABD: soft, BS+, NT/ND
EXT: No edema, clubbing or cyanosis;
NEURO: Gross non-focal
SKIN: Petechial rash of right hand extending slightly above wrist distal to where a radial band was previously placed. Radial site clean dry intact without evidence of hematoma or ecchymosis. +2 pulse with no evidence of vascular compromise. No
rash noted on other parts of body., Warm, dry, pink
--- NOTE | 2025-01-08 10:48 | CM ---
Chart reviewed. Patient lying in bed with Impella. Patient is independent of ADLS, lives with his in a 2 STH, 4 KULWINDER, 0 DME. Plan is for the patient to return home. CM to follow
[2025-01-08] MEDS: ZOFRAN 4 MG IV ×2 (11:39→17:45)
--- NOTE | 2025-01-08 11:45 | PTCARENOTE ---
Patient reassessed. NSR w/ occasional PVC's BP 110/72 HR 74 POX 93% RA. CI 2.58 CO 5.42 PAP 44/20 CVP 10. Labs drawn. Intermittent nausea KONSTANTIN Langston notified. Ethan ordered see MAR for details. Patients describes pain on lower back 05/13.
Morphine given see MAR for details. Washed w/ CHG cloths and gown changed. Questions encouraged.
[2025-01-08 11:48] LABS: Mixed Venous O2 Saturation 60.5 %
[2025-01-08 11:56] LABS: APTT 39.7 Sec (23.4-35.0)
[2025-01-08 12:10] LABS: NT-proBNP 13200 pg/ml
--- NOTE | 2025-01-08 12:26 | W.PN.INTV ---
Today's Communication / Plan
Recommendations
- Consider replacing mag with a target level of 2 or more
- Continue to monitor WBC count
Assessment
-
Very pleasant 69-year-old gentleman with history of CLL, not on any current treatment, presented to the emergency room with recurrent episodes of upper abdominal pain, feeling bloated. Patient reportedly having these episodes over last few weeks
but they will be intermittent. Today he developed the episode and it did not improve and subsequently patient developed diaphoresis and decided to seek medical care. In the emergency room patient found to have anterior lateral ST elevation and was
taken to Pediatric Lpn. Postprocedure patient was brought to cardiovascular ICU with Impella device in place. Retail Shift Leader consultation was requested for further management.
#1. Acute ST elevation GA
-S/p PCI, currently Impella device in place. Hemodynamically stable, not requiring any pressors. Saturating well on room air
-Patient chest pain-free during evaluation
-Management per cardiology service, currently on aspirin, Brilinta and statins
-Keep potassium 4 above and magnesium 2 or above.
#2. History of CLL
-Patient reports prior treatment and currently being monitored closely
-Continue to monitor white count
-Patient lying flat in bed, in no acute distress
-Saturating close to 100% on 2 L
-Hemodynamically stable, not on any pressor therapy
-Impella in place
-Patient is chest pain-free
-No prior known history of pulmonary disease
-Use inhalers on an as-needed basis
We will follow
Critical Care time 30 mins -- The patient is admitted for acute critical illness for the treatment of vital organ failure and/or prevention of further life-threatening conditions. Total care includes time spent in review of history, physical exam,
medications, hemodynamic/ventilator parameters, laboratory data, imaging and discussion with house staff, pharmacy, respiratory therapy, environmental sampler, and nursing.
Subjective Dataa
Subjective Data
Date of Service:
Date of Service: January 08, 2025
Subjective:
Patient comfortably lying in bed in no acute distress.
Review of Systems
Genitourinary: Other (All 14 systems reviewed and negative except as stated above in the history of present illness.)
Objective Data
Data Reviewed
Vital Signs / I&O / Oxygen:
Vital Signs
Temp Pulse Resp BP Pulse Ox
98.8 F 71 15 110/74 91
01/08/25 12:00 01/08/25 12:10 01/08/25 12:10 01/08/25 12:00 01/08/25 12:10
Intake and Output
01/07/25 01/08/25 01/09/25
06:59 06:59 06:59
Intake Total 1620.1 / 1661.1 475 / 475
Output Total 1600 / 1600 700 / 700
Balance 20.1 / 61.1 -225 / -225
SaO2 91
Nasal Cannula flow liters per 2
minute
Physical Exam
General: Comfortable
HEENT: Normocephalic
Cardiovascular: Regular Rhythm
Respiratory: Clear and Non-Labored Respirations
GI: Soft and Non Distended
Neurology: Awake and Alert
Labs/Micro/Reports
Lab Data
01/08/25 04:00
01/08/25 03:59
Laboratory Results
01/07/25 01/07/25 01/07/25
13:16 20:50 20:54
PT 14.7 H 14.7 H
INR 1.10 1.10
APTT 30.6
pH 7.48 H 7.46 H
pCO2 30 L 34 L
pO2 82 L 123 H
HCO3 22.3 24.2
O2 Delivery Level 4l nc
01/07/25 01/08/25 01/08/25
21:00 03:30 03:59
PT 14.8 H
INR 1.11
APTT Cancelled Cancelled 34.9
pH
pCO2
pO2
HCO3
O2 Delivery Level
[2025-01-08 12:27] LABS: LDH 2113 U/L (120-246)
--- NOTE | 2025-01-08 13:11 | PTCARENOTE ---
Rudy CP changed to P-[address] Nina @ 8685. One episode of emesis due to nausea.
[2025-01-08 13:34] LABS: Mixed Venous O2 Saturation 64.6 %
[2025-01-08] MEDS: NITROPRESS 252 MG IV (14:32)
[2025-01-08 14:44] LABS: Mixed Venous O2 Saturation 65.8 %
--- NOTE | 2025-01-08 14:45 | PTCARENOTE ---
Mv02 reported to Dr. Jones, impella P level decreased from P4 to P3. Impella began to alarm 'impella in aorta'. Dr. Nina at bedside, STAT echo completed. Repeat MV02 drawn and sent. Rodrigues placed as ordered.
--- NOTE | 2025-01-08 15:07 | PN.CDI ---
CDI
- -
CDI:
Physician Documentation Request
Admit Date: 01/07/25 12:08
Dear Doctor /PA,
Please review the following and provide your response in the progress notes.
Clinical Indicators:
Pt admitted with STEMI/Cardiogenic shock s/p PCI /Impella device
CXR on admit,' Findings concerning for pulmonary edema...'
ECHO 01/07, ' ... ejection fraction is 20-25% by visual estimate. Diastolic function indeterminate...'
BNP 13,200
Cardiology progress note 01/08, ' Cardiac catheterization 01/07/2025: LVEDP 55...Impella at P5 and pulmonary hypertension with elevated pulmonary artery diastolic pressure....Ischemic cardiomyopathy, EF 20 to 25% ...Continue Lasix 40 mg IV twice
daily....'
Please provide a diagnosis for the above findings/IV Lasix use :
Acute Systolic CHF
Acute Diastolic CHF
Acute Combined CHF
Other ( please specify)
Use of terms such as suspected, likely, concern for, or probable (associated with a specific diagnosis that is being evaluated, monitored, or treated as if it exists) are acceptable and can be coded in the inpatient setting, when documented at the
time of discharge.
Thank you,
Cherelle Keating RN
CDI Specialist
[place] [facility]
Please use your independent medical judgment in providing your response.
--- NOTE | 2025-01-08 15:22 | PTCARENOTE ---
pt send to CCL for impella removal.
--- NOTE | 2025-01-08 15:45 | W.PN.UPDATE ---
Update Note
Progress Note Update
Interventional cardiology update
11 AM: Discussed with our PA and patient's nursing to send a mixed venous sat given none was checked overnight. Also holding LDH in the setting of worsening creatinine to ensure no hemolysis while Impella is in place.
12PM: Mixed venous sat returned at 60 while patient was on P5 support at Impella, of nitroglycerin, blood pressures with maps at 95-100, PA pressures in the 70s over 20s, RA pressure of 10. Patient just had a episode of vomiting. He was not
complaining of any chest pain. Assessed patient at bedside with family at bedside and nursing. Discussed weaning Impella to P4 with plan to recheck mixed venous sat 45 minutes after making this change while also giving additional dose of IV Lasix
and considering possibly adding Nitroprusside. MEAT PRESS OPERATOR > 1.
Around 1:30 PM, on P4 Impella support, mixed venous sat returned at 64.6 and patient was tolerating the wean well. MAP still at 95-1 100s, PA pressures improved at high 40s over 20s. Lasix still had not been given so asked nursing to give 40 mg of
IV Lasix and initiate night pride at 0.1mcg/kg/min For map goal of 65 or over. Plan to now wean Impella to P3. MEAT PRESS OPERATOR > 1
Around 2 PM, I was notified by nursing that the Impella was alarming that the catheter was now in the aortic position. Stat echocardiogram was performed bedside which I interpreted with no catheters noted in the LV with pigtail likely in the aortic
position. Impella was turned to P2 level given it was outside of the LV. Given patient was otherwise hemodynamically stable we decided to continue leaving this in the aorta for now with plan to initiate nitroprusside with Lasix recently given. MEAT PRESS OPERATOR
> 1.
Around 2:30 PM, repeat mixed venous sat resulted at 65.8. Decision was made to discontinue Impella in the heart catheterization lab under fluoroscopic guidance. We will also work on placing a right IJ [place]-Chasidy catheter for further medication
management in hopes to discontinue the groin line.
Please read Hammer Fitter report for further updates.
Maryann Nina MD, FACC, [facility]
[2025-01-08] MEDS: ANCEF 5 IV (15:51)
--- NOTE | 2025-01-08 16:50 | ITS.CL.CATH ---
[place] [facility] - Catheterization
Cardiac Catheterization
Procedure Report:
IMPELLA REMOVAL AND RIGHT HEART CATHETERIZATION
Date of Procedure: January 08, 2025
Referring: Axel Dukes
INDICATION: Impella removal given clinical improvement and assess invasive hemodynamics
IMPELLA REMOVAL: Under fluoroscopy we confirmed that the Impella catheter had migrated into the aorta already and it was on P2 support. Return the Impella off at this time and to get out of the indwelling sheath which was sitting in the right
common femoral artery. Through this sheath we placed a 0.35 J-wire up into the descending aorta and removed the sheath, cinching down to preclose's that were left in place in a sterile manner achieving successful hemostasis. Patient tolerated the
procedure well. No acute complications.
ACCESS: Right internal jugular vein
Ultrasound was utilized for vascular access. The RIJ vein was visualized under ultrasound, and the vessel was patent. An image was stored permanently in the patient's medical record. Under direct ultrasound guidance, a 8 Lao sheath was
inserted into the artery using a micropuncture kit through a modified Seldinger technique.
Hemodynamics (mmHg):
RA (m) : 14
RV (s/d,m) : 44/11, 14
PA (s/d, m) : 43/24, 31
PCWP (m) : 27
PA saturation: 61.0% on room air
AO saturation: 97.0% on room air--noninvasive pulse ox
Cardiac Output : 4.96 L/min
Cardiac Index : 2.41 L/min/m-2
Systemic vascular resistance: 1306 dsc^(-5)
Pulmonary vascular resistance: 1.61 paniagua unit
RADIATION SUMMARY: Fluoro Time (min): 0.6, Dose (mGy): 5.02, DAP (Gy.cm2) : 0.68
SEDATION: 44 minutes of procedural sedation was utilized. An independent medical assembler was present to assist with and help manage the patient's level of consciousness and physiologic status.
CONCLUSIONS
1. Successful removal of Impella under fluoroscopic guidance. Groin site closed using 2 preclose's with successful hemostasis.
2. Elevated right and left-sided filling pressures with normal cardiac output and mildly elevated SVR.
RECOMMENDATIONS
1. Ongoing medical therapy for recent ST elevation MD. Heparin can be discontinued. Continue uninterrupted dual antiplatelet therapy with daily baby aspirin and ticagrelor along with high intensity statin.
2. Goal-directed medical therapy for ischemic cardiomyopathy and ongoing aggressive IV diuresis.
3. Continued monitoring of mixed venous sats via right IJ Bonnie along with lactate and other lab work.
4. Chest x-ray post right IJ [place]-Chasidy catheter placement which was secured and sutured in place.
5. 6 hours of flat bedrest
Maryann Nina MD, FACC, [facility]
--- NOTE | 2025-01-08 17:05 | PTCARENOTE ---
Received patient back from distillery laborer @6901. VSS NSR BP 124/88 HR 73 POX 96% 2L NC. ROSA saunders and Nicolas @52. Rodrigues draining clear yellow urine. Intermittent nausea still persists. Right groin dressing dry and intact. Radial and pedal pulses
present bilaterally.
[2025-01-08] MEDS: XYLOCAINE 1% 10 ML INFIL (18:04)
[2025-01-08 18:09] LABS: Mixed Venous O2 Saturation 67.3 %
[2025-01-08] MEDS: LIPITOR 80 MG PO (18:11)
--- NOTE | 2025-01-08 19:24 | W.PN.UPDATE ---
Update Note
Progress Note Update
Radial arterial line placement
A time-out was completed verifying correct patient, procedure, site, patient positioning, and special equipment. Patient was monitored with continuous bedside EKG, blood pressure, pulse ox readings.
Gabriel's test was performed to ensure adequate perfusion. The patient's left wrist was prepped and draped in sterile fashion.
1% Lidocaine was used to anesthetize the area. Ultrasound was used in real time to localize the radial artery and guide introducer needle into the arterial lumen. The catheter was threaded over the guide wire and the needle was removed with
appropriate pulsatile blood return. The catheter was then secured in place to the skin and a biopatch and sterile dressing applied.
Perfusion to the extremity distal to the point of catheter insertion was checked and found to be unchanged.
Estimated Blood Loss: 0 mL
The patient tolerated the procedure well and there were no complications.
Remains in critical condition.
[2025-01-08 19:42] LABS: LDH 1999 U/L (120-246)
--- NOTE | 2025-01-08 20:30 | PTCARENOTE ---
Patient received resting in bed. Patient A+A+Ox3. No neurological deficits noted. No c/o pain or discomfort. O2 at 2L via NC. SpO2 97%. Sinus Rhythm. Heart rate 70's. Patient with no c/o chest pain, pressure or discomfort. Nitroprusside gtt
at 0.6 mcq/kg/min (15.8 ml/hr) via Right I.J. Cordis - Maintain MAP 70-100. Abdomen round, distended. No BM. Positive flatus. No c/o nausea. No vomiting. Rodrigues catheter intact - Outputs as documented. Positive, palpable pulses. Right groin
dressing intact - No hematoma, bleeding or oozing noted - Positive circulation, sensation and mobility to right lower extremity. Right I.J. Cordis/[place]. Left radial arterial line. A-Line, PAP, CVP with pressure bag/saline flush - Flush without
difficulty - Zeroed and calibrated - Waveforms within normal limits. C.O. 5.58 C.I. 2.26 SVR 1075 PAP 32/13 (20) CVP 5. Right wrist puncture site - Open to air - Edema, ecchymotic - Positive circulation, sensation and mobility to right upper
extremity. Assessment as documented.
[2025-01-08] MEDS: SENOKOT-S 1 TABLET PO (21:37)
[2025-01-08 22:50] LABS: Mixed Venous O2 Saturation 64.8 %
--- NOTE | 2025-01-08 23:00 | PTCARENOTE ---
Patient sleeping. Mixed Venous 64.8. C.O. 5.09 C.I. 2.42 SVR 1068 PAP 30/12 (18) CVP 4. Assessment as documented.
[2025-01-09] VITALS (26 sets, daily range): BP systolic 88–132; BP diastolic 56–82; BMI 27.7
--- NOTE | 2025-01-09 01:00 | PTCARENOTE ---
Patient given CHG bath and linens changed. Patient's Right I.J. Cordis/[place] dressing changed. Right groin dressing intact. C.O. 6.55 C.I. 3.12 SVR 793 PAP 33/14 (20) CVP 4. Patient back to sleep. Assessment/Interventions as documented.
[2025-01-09 03:54] LABS: Mixed Venous O2 Saturation 68.2 %
[2025-01-09 04:21] LABS: Hematocrit 29.6 % (39.0-52.0); Hemoglobin 9.5 g/dL (13.0-18.0); Mean Corp Hgb Conc. 32.1 g/dL (33.0-37.0); Mean Corpuscular Hgb 27.3 pg (27.0-31.0); Mean Corpuscular Volume 85.1 fL (80.0-94.0); Mean Platelet Volume 9.6 fL (7.4-10.4); Platelet Count 205 10^3/uL (130-400); Red Blood Cell Count 3.48 10^6/uL (4.70-6.10); Red Cell Dist. Width 14.7 % (11.5-14.5); White Blood Cell Count 57.7 10^3/uL (4.8-10.8)
[2025-01-09 04:23] LABS: INR 1.07; PT 14.2 Sec (11.4-14.6)
[2025-01-09 04:24] LABS: Fibrinogen 613 MG/DL (199-459)
[2025-01-09 04:26] LABS: D-Dimer 1.14 ug/mlFEU (0.00-0.50)
--- NOTE | 2025-01-09 04:30 | PTCARENOTE ---
Patient sleeping. AM lab work collected and sent. Mixed Venous 68.2. C.O. 6.69 C.I. 3.19 SVR 920 PAP 37/12 CVP 4 Patient with no c/o pain or discomfort. Assessment/Interventions as documented.
[2025-01-09 04:42] LABS: Lactic Acid 0.7 mmol/L (0.7-2.0)
[2025-01-09 04:59] LABS: ALT (SGPT) 88 U/L (0-50); AST (SGOT) 344 U/L (17-59); Albumin 2.6 g/dl (3.5-5.0); Alkaline Phosphatase 69 U/L (38-126); Blood Urea Nitrogen 37 mg/dl (9-20); Carbon Dioxide 27 mmol/L (22-30); Chloride 100 mmol/L (98-107); Estimated Creatinine Clearance 56 ml/min; Glucose 103 mg/dl (70-99); Potassium 4.1 mmol/L (3.5-5.1); Sodium 131 mmol/L (135-145); Total Bilirubin 0.9 mg/dl (0.2-1.3); Total Protein 4.4 g/dl (6.3-8.2); eGFR 56.48
[2025-01-09 05:26] LABS: LDH 1854 U/L (120-246)
--- NOTE | 2025-01-09 06:20 | W.PN.UPDATE ---
Update Note
Progress Note Update
-pt s/p large MT (trop>400) with cardiogenic shock, requiring Impella for hemodynamic support. Pt has been complaining of generalized abdominal discomfort with distended abdomen, reports no flatus until late afternoon yesterday. Bassam Morales
started. Abdominal XRY this am with distended bowels- monitor, r/o ischemia.
[2025-01-09] MEDS: NITROPRESS 252 MG IV (06:30)
[2025-01-09 07:41] LABS: % Basophils 0.1 % (0-2); % Eosinophils 0.1 % (0-6); % Immature Granulocytes 0.7 % (0-0.5); % Lymphocytes 72.5 % (20.5-51.1); % Monocytes 2.8 % (1.7-9.3); % Neutrophils 23.8 % (42.2-75.2); Absolute Basophils 0.1 10^3/uL (0-0.2); Absolute Immature Granulocytes 0.4 10^3/uL (0-0.05); Absolute Lymphocytes 41.8 10^3/uL (1.2-3.4); Absolute Monocytes 1.6 10^3/uL (0.1-0.6); Absolute Neutrophils 13.8 10^3/uL (1.4-6.5); Nucleated Red Blood Cells % 0 % (-)
--- NOTE | 2025-01-09 08:00 | PTCARENOTE ---
pt received from previous RN, oriented, in bed. SR on the monitor, HR 70-80s. SBP 130-140s. Nipride gtt running as ordered. PAP 30-50s/10s. CVP~1-5. palpable pulses. +1 R hand edema. pt on 2LNC, 96-98% POX. lungs clear, diminished. pt abdomen
distended, pt denies tenderness, +BS. diet tolerated well. Rodrigues in place, clear yellow urine. R groin c/d/i. R wrist intact, petechiae on R hand. RIParamjit saunders/netta maintained. PIVx2. see worklist for VS, I&O, and assessment.
[2025-01-09] MEDS: PEPCID 20 MG PO (08:38)
[2025-01-09] MEDS: PROTONIX 40 MG PO (08:38)
[2025-01-09] MEDS: BRILINTA 90 MG PO ×2 (08:38→20:07)
[2025-01-09] MEDS: LOW STRENGTH ASPIRIN 81 MG PO (08:38)
[2025-01-09] MEDS: SENOKOT-S 1 TABLET PO ×2 (08:38→20:06)
[2025-01-09] MEDS: LOPRESSOR 12.5 MG PO (08:38)
[2025-01-09] MEDS: LASIX 40 MG IV ×2 (08:39→15:45)
--- NOTE | 2025-01-09 09:49 | W.PN.CARDCBS ---
Today's Communication / Plan
-
Recommendations:
-Change Toprol to Coreg 6.25mg bid
-Add Valsartan 80 mg this am and titrate
-Cut sodium nitroprusside in half
-Check HgbA1c
-Check urine protein-creatinine ratio
-+/- Hydral and nitrate vs IV nitro based on blood pressures
NOTE: Patient note written 01/09/25 but forgot to sign until this am.
Impression / Plan
-
Family Physician: Margaret Bernal
Oncologist: Curry Jane MD ([facility])
Acid Purification Equipment Operator: None prior to admission, initial consult Axel Sanchez
Impression:
Presented 01/07/2025 with waxing and waning epigastric discomfort and chest pain
Acute ST elevation anterolateral wall MO
s/p mid left main with a 4.0 x 12 mm Christopher stent (01/07/2025)
s/p ostial LAD 3.25 x 28 mm Xience stent and overlapping 3.5 x 18 mm distal to the initial stent (01/07/2025)
s/p ostial ramus intermedius with a 3.5 x 12 mm Winston stent (01/07/2025)
Impella device implant 01/07/2025
Significantly elevated troponin, greater than 400
Ischemic cardiomyopathy, EF 20 to 25%
Elevated LFTs
CLL stage 3, Rituxan x 6 2013
Hypertension
GERD
Gout
Cardiac catheterization 01/07/2025: Dominance: Left. LEFT MAIN: Large left main. Imaging in RO cranial view is notable for contrast filling of a possible disrupted plaque, s/p mid left main with a 4.0 x 12 mm Winston stent.
LEFT ANTERIOR DESCENDIN% occluded proximally with the distal vessel noted to fill via left to left and faint right to left collaterals, s/p ostial LAD 3.25 x 28 mm Xience stent and overlapping 3.5 x 18 mm distal to the initial stent
RAMUS: 95% ostial stenosis with filling defect suggestive of thrombus. s/p ostial ramus intermedius with a 3.5 x 12 mm Christopher stent
CIRCUMFLEX: Large-caliber dominant circumflex
RIGHT CORONARY ARTERY: Subselective cannulation and critically ill patient
HEMODYNAMICS : mmHg AO (s/d, m) : 133/81, 69; LV (s/d) : 123/31; LVEDP : 55
Echo 01/07/2025: EF 20 to 25%, thrombus adherent to mid inferoseptal and mid inferior wall cannot be excluded. Impella in place, 3.7 cm from leaflets. Mild AI with indwelling Impella
Plan:
Presented 01/07/2025 with waxing and waning epigastric discomfort and chest pain and was found to have abnormal EKG concerning for evolving anterolateral MO. Patient was referred for emergent catheterization/STEMI alert
Patient overall is doing remarkably well. Notes improved epigastric and chest discomfort. Off all drips except heparin
Acute ST elevation anterolateral wall MO
-s/p mid left main with a 4.0 x 12 mm Winston stent post dilated to high pressures with a 5.0 mm , s/p ostial LAD 3.25 x 28 mm Xience stent and overlapping 3.5 x 18 mm distal to the initial stent post dilated with a 3.5 mm NC balloon distally and 4.0
mm NC balloon, and s/p ostial ramus intermedius with a 3.5 x 12 mm Christopher stent (01/07/2025) and post dilated with a 3.5 mm NC balloon.
-Troponin peaked at greater than 400 x 2, continue to monitor and trend
-Impella d/c'd yesterday. Right groin looks well. Hemodynamically doing well.
-Dual antiplatelet therapy with aspirin and Brilinta for minimum of 1 year, platelets stable at 225,000, Hgb 10.0
-Continue pantoprazole
-Prestatin lipids TC 142, HDL 39, LDL 83, triglycerides 103, started on high intensity atorvastatin
-Hemoglobin A1c pending
Ischemic cardiomyopathy, EF 20 to 25%. Blood pressures are high on sodium nitroprusside
-Change lopressor to Coreg 6.25 mg bid with slow titration
-Add Valsartan 80mg daily and will attempt to wean sodium nitroprusside. May have to add hydralazine + nitrates or IV nitro
-Continue Lasix 40 mg IV twice daily
-Creat 1.3-1.4 range. Continue to monitor and trend
-Keep potassium greater than 4, magnesium greater than 2
-Monitor closely on telemetry, PVCs noted with occasional short runs of NSVT which seem to improve improved with repletion of electrolytes
Abnormal LFTs consistent with shock a liver
CLL with prior Rituxan treatment 2013. Followed by heme[facility]onc at [facility]
History of proteinuria:
-Will check urine protein to Cr. ratio: May need nephrology input if nephrotic range
HPI 01/07/2025:
64 yo WM h/o CLL, HTN, non smoker, social ETOH, father with MO @71. He has been having epigastric pain for the last 4 weeks, this morning at work ([employer]) the pain returned and did not resolve. On arrival to ER CP 8/10 radiating to b/l UE/neck
with 2 sl nitro down to 5/10. EKG with anterior/lateral KULWINDER. He was given heparin, brilinta, ASA and brought urgently to cardiac cath tech.
Progress Note - Acid Purification Equipment Operator
Subjective
Date of Service: January 09, 2025
Feeling well. He tells me that he had 'very high protein levels in his urine that they think was related to his CLL'. He also states that he had a bad 'cough and congestion' on a medication.
Total Time Spent with Patient (in minutes): 75 minutes
Objective
Labs:
01/09/25 03:44
01/09/25 03:44
Labs
Hgb 9.5 g/dL (13.0-18.0) L 01/09/25 03:44
Hct 29.6 % (39.0-52.0) L 01/09/25 03:44
Plt Count 205 10^3/uL (130-400) 01/09/25 03:44
PT 14.2 Sec (11.4-14.6) 01/09/25 03:44
INR 1.07 01/09/25 03:44
APTT Cancelled 01/08/25 19:00
Sodium 131 mmol/L (135-145) L 01/09/25 03:44
Potassium 4.1 mmol/L (3.5-5.1) 01/09/25 03:44
BUN 37 mg/dl (9-20) H 01/09/25 03:44
Creatinine 1.4 mg/dL (0.7-1.3) H 01/09/25 03:44
Glucose 103 mg/dl (70-99) H 01/09/25 03:44
Troponins
01/07/25 01/07/25 01/07/25
09:02 13:16 20:54
Troponin I 0.329 H* > 400.000 H* D > 400.000 H*
01/08/25 01/08/25 01/08/25
04:00 11:34 19:02
Troponin I 359.000 H* 239.000 H* D 169.000 H* D
01/09/25
03:44
Troponin I 140.000 H*
Vital Signs and I&O:
Vital Signs
Temp Pulse Resp BP Pulse Ox
99.2 F 80 15 140/67 97
01/09/25 09:00 01/09/25 09:15 01/09/25 09:15 01/09/25 08:39 01/09/25 09:15
Vital Signs
Temp Pulse Resp BP Pulse Ox
99.2 F 80 15 140/67 97
01/09/25 09:00 01/09/25 09:15 01/09/25 09:15 01/09/25 08:39 01/09/25 09:15
Intake & Output
0301/07/25 01/08/25 01/09/25
23:59 23:59 23:59 23:59
Intake Total 745.1 / 1054.1 1686.0 / 1711.8 822.8 / 822.8
Output Total 1250 / 1250 1660 / 1690 1005 / 1005
Balance -504.9 / -195.9 26.0 / 21.8 -182.2 / -182.2
Physical Exam
Physical Exam
Gen: awake, alert, oriented
HEENT: NC/AT, sclera anicteric
Lungs: Diminished breath sounds at left. Clear right
CV: No rub. Normal S1 and S2 no rub
Abd: Mildly distended positive bowel sounds
Ext: No edema
[2025-01-09 10:55] LABS: Glycohemoglobin (HgbA1c) 5.5 % (4.0-5.6)
[2025-01-09] MEDS: DIOVAN 80 MG PO (11:27)
--- NOTE | 2025-01-09 12:00 | PTCARENOTE ---
pt VSS, OOB in chair w/ minimal assist. Nipride titrated as ordered. Rodrigues dc'd as ordered. no c/o pain.
[2025-01-09 12:11] LABS: Protein/creatinine Ratio 1.4; Urine Protein 80 mg/dl
--- NOTE | 2025-01-09 12:24 | W.PN.INTV ---
Today's Communication / Plan
Recommendations
Continue incentive spirometry
Assessment
-
Very pleasant 69-year-old gentleman with history of CLL, not on any current treatment, presented to the emergency room with recurrent episodes of upper abdominal pain, feeling bloated. Patient reportedly having these episodes over last few weeks
but they will be intermittent. Today he developed the episode and it did not improve and subsequently patient developed diaphoresis and decided to seek medical care. In the emergency room patient found to have anterior lateral ST elevation and was
taken to Graphic Design Intern. Postprocedure patient was brought to cardiovascular ICU with Impella device in place. Road Cutter consultation was requested for further management.
#1. Acute ST elevation [place]
-S/p PCI, currently Impella device in place. Hemodynamically stable, not requiring any pressors. Saturating well on room air
-Patient chest pain-free during evaluation
-Management per cardiology service, currently on aspirin, Brilinta and statins
-Keep potassium 4 above and magnesium 2 or above.
#2. History of CLL
-Patient reports prior treatment and currently being monitored closely
-Continue to monitor white count
-Patient sitting in chair, in no acute distress
-Saturating close to 100% on 2 L
-Hemodynamically stable, not on any pressor therapy, on nitro infusion
-Impella in place
-Patient is chest pain-free
-No prior known history of pulmonary disease
-Use inhalers on an as-needed basis
We will follow
Critical Care time 30 mins -- The patient is admitted for acute critical illness for the treatment of vital organ failure and/or prevention of further life-threatening conditions. Total care includes time spent in review of history, physical exam,
medications, hemodynamic/ventilator parameters, laboratory data, imaging and discussion with house staff, pharmacy, respiratory therapy, business development director, and nursing.
ECHO 01/2025:
1. Normal left ventricular size with severe left ventricular disc function, EF
20-25% by visual estimate. Severe global hypokinesis, basal segments contract
best. Severe hypo-akinesis of the apex, inferoapex, apical septum, apical
anterior segments. Impella not present in left ventricle
2. Mild mitral regurgitation with mildly dilated left atrium
3. Trace-mild aortic regurgitation
4. Normal right heart, Breckenridge-Chasidy catheter present
5. Impella visualized in ascending aorta with tip in right sinus of Valsalva
Subjective Dataa
Subjective Data
Date of Service:
Date of Service: January 09, 2025
Subjective:
Patient comfortably sitting in bed in no acute distress. No dyspnea reported.
Review of Systems
Genitourinary: Other (All 14 systems reviewed and negative except as stated above in the history of present illness.)
Objective Data
Data Reviewed
Vital Signs / I&O / Oxygen:
Vital Signs
Temp Pulse Resp BP Pulse Ox
99.6 F 82 17 119/60 98
01/09/25 10:00 01/09/25 11:07 01/09/25 11:07 01/09/25 11:27 01/09/25 11:07
Intake and Output
01/08/25 01/09/25 01/10/25
06:59 06:59 07:59
Intake Total 1620.1 / 1661.1 1526.4 / 1552.2 159.0 / 159.0
Output Total 1600 / 1600 1690 / 1815 900 / 900
Balance 20.1 / 61.1 -163.6 / -262.8 -741.0 / -741.0
SaO2 98
Nasal Cannula flow liters per 2
minute
Physical Exam
General: Comfortable
HEENT: Normocephalic
Cardiovascular: Regular Rhythm
Respiratory: Clear and Non-Labored Respirations
GI: Distended (Mildly distended but no rebound or guarding)
Neurology: Awake and Alert
Labs/Micro/Reports
Lab Data
01/09/25 03:44
01/09/25 03:44
Laboratory Results
01/08/25 01/08/25 01/09/25
11:34 19:00 03:44
PT 14.2
INR 1.07
APTT 39.7 H Cancelled
--- NOTE | 2025-01-09 16:15 | PTCARENOTE ---
pt VSS, Nipride titrated off @~1400. L teto Simpson positional, dampening. Dr. Hauser aware. per Yaakov MOISE dc'd, dressing c/d/i.
[2025-01-09] MEDS: LIPITOR 80 MG PO (17:42)
--- NOTE | 2025-01-09 20:05 | PTCARENOTE ---
pt received from previous rn. VSS, Pt AAOx4, NSr per tele monitor HR 70-80s, PAP 40/15 CVP 3, + pulses, trace R hand edema, pox 94% onRA, lungs diminished, pt abdomen distended, pt denies tenderness, +BS, pt voids spontaneously in urinal, R groin
c/d/i. R wrist intact, petechiae on R hand. RIJ cordis/swan maintained. PIVx2. plan of care discussed and questions encouraged
[2025-01-09] MEDS: COREG 6.25 MG PO (20:06)
[2025-01-10] VITALS (16 sets, daily range): BP systolic 93–136; BP diastolic 66–79; BMI 27.0
--- NOTE | 2025-01-10 00:14 | PTCARENOTE ---
VSS, NSR per tele monitor, HR 70s, assessment remains unchanged
[2025-01-10 05:23] LABS: Fibrinogen 562 MG/DL (199-459); INR 1.15
[2025-01-10 05:26] LABS: D-Dimer 1.36 ug/mlFEU (0.00-0.50)
[2025-01-10 05:32] LABS: ALT (SGPT) 56 U/L (0-50); AST (SGOT) 133 U/L (17-59); Albumin 2.4 g/dl (3.5-5.0); Alkaline Phosphatase 69 U/L (38-126); Blood Urea Nitrogen 40 mg/dl (9-20); Calcium 7.9 mg/dl (8.4-10.2); Carbon Dioxide 32 mmol/L (22-30); Chloride 100 mmol/L (98-107); Estimated Creatinine Clearance 49 ml/min; Glucose 92 mg/dl (70-99); Magnesium 2.3 mg/dl (1.6-2.3); Potassium 3.6 mmol/L (3.5-5.1); Sodium 134 mmol/L (135-145); Total Bilirubin 0.9 mg/dl (0.2-1.3); Total Protein 4.2 g/dl (6.3-8.2); eGFR 48.11
[2025-01-10 05:38] LABS: Hematocrit 25.4 % (39.0-52.0); Hemoglobin 8.5 g/dL (13.0-18.0); Mean Corp Hgb Conc. 33.5 g/dL (33.0-37.0); Mean Corpuscular Hgb 28.4 pg (27.0-31.0); Mean Corpuscular Volume 84.9 fL (80.0-94.0); Mean Platelet Volume 9.9 fL (7.4-10.4); Platelet Count 165 10^3/uL (130-400); Red Blood Cell Count 2.99 10^6/uL (4.70-6.10); Red Cell Dist. Width 14.6 % (11.5-14.5); White Blood Cell Count 41.1 10^3/uL (4.8-10.8)
[2025-01-10] MEDS: KCL 40 MEQ PO (06:06)
--- NOTE | 2025-01-10 08:00 | PTCARENOTE ---
pt received from previous RN, oriented, OOB in chair. SR on the monitor, HR 70-80s. SBP 110-130s. PAP 20-30s/10s. CVP~1-5. palpable pulses. +1 R hand edema. pt on RA, 97-99% POX. lungs clear, diminished in bases. IS encouraged. pt abdomen distended,
s/n, +BS. +flatus. diet tolerated well. voiding clear yellow urine. R groin c/d/i. R wrist intact, petechiae on R hand. RIParamjit saunders/netta maintained. PIVx2. see worklist for VS, I&O, and assessment.
[2025-01-10 08:37] LABS: % Basophils 0.2 % (0-2); % Eosinophils 0.4 % (0-6); % Immature Granulocytes 0.4 % (0-0.5); % Lymphocytes 75.3 % (20.5-51.1); % Monocytes 4.3 % (1.7-9.3); % Neutrophils 19.4 % (42.2-75.2); Absolute Basophils 0.1 10^3/uL (0-0.2); Absolute Eosinophils 0.2 10^3/uL (0-0.7); Absolute Immature Granulocytes 0.2 10^3/uL (0-0.05); Absolute Monocytes 1.8 10^3/uL (0.1-0.6); Absolute Neutrophils 7.9 10^3/uL (1.4-6.5); Nucleated Red Blood Cells % 0 % (-)
[2025-01-10] MEDS: LASIX IV (08:41)
[2025-01-10] MEDS: COREG 6.25 MG PO ×2 (08:48→20:10)
[2025-01-10] MEDS: PEPCID 20 MG PO (08:48)
[2025-01-10] MEDS: DIOVAN 80 MG PO (08:48)
[2025-01-10] MEDS: BRILINTA 90 MG PO ×2 (08:48→20:10)
[2025-01-10] MEDS: SENOKOT-S 1 TABLET PO (08:48)
[2025-01-10] MEDS: LOW STRENGTH ASPIRIN 81 MG PO (08:48)
[2025-01-10] MEDS: PROTONIX 40 MG PO (08:48)
[2025-01-10 09:21] LABS: Hemoglobin 10.3 g/dL (13.0-18.0); Mean Corp Hgb Conc. 32.2 g/dL (33.0-37.0); Mean Corpuscular Hgb 27.9 pg (27.0-31.0); Mean Corpuscular Volume 86.7 fL (80.0-94.0); Mean Platelet Volume 9.9 fL (7.4-10.4); Platelet Count 211 10^3/uL (130-400); Red Blood Cell Count 3.69 10^6/uL (4.70-6.10); Red Cell Dist. Width 14.6 % (11.5-14.5)
[2025-01-10 09:33] LABS: ALT (SGPT) 58 U/L (0-50); AST (SGOT) 145 U/L (17-59); Alkaline Phosphatase 69 U/L (38-126); Blood Urea Nitrogen 41 mg/dl (9-20); Calcium 8.4 mg/dl (8.4-10.2); Carbon Dioxide 28 mmol/L (22-30); Chloride 102 mmol/L (98-107); Estimated Creatinine Clearance 52 ml/min; Glucose 137 mg/dl (70-99); Potassium 4.2 mmol/L (3.5-5.1); Sodium 134 mmol/L (135-145); Total Bilirubin 0.9 mg/dl (0.2-1.3); Total Protein 4.9 g/dl (6.3-8.2); eGFR 51.99
[2025-01-10 10:08] LABS: % Basophils 0.1 % (0-2); % Eosinophils 0.2 % (0-6); % Immature Granulocytes 0.6 % (0-0.5); % Lymphocytes 78.3 % (20.5-51.1); % Monocytes 1.8 % (1.7-9.3); Absolute Basophils 0.1 10^3/uL (0-0.2); Absolute Eosinophils 0.1 10^3/uL (0-0.7); Absolute Immature Granulocytes 0.3 10^3/uL (0-0.05); Absolute Lymphocytes 44.4 10^3/uL (1.2-3.4); Absolute Neutrophils 10.8 10^3/uL (1.4-6.5); Nucleated Red Blood Cells % 0 % (-); White Blood Cell Count 56.7 10^3/uL (4.8-10.8)
--- NOTE | 2025-01-10 10:14 | PTCARENOTE ---
labs drawn, Dr. Hauser aware of results. aware of an hemodynamics. +large loose BM.
[2025-01-10 10:52] LABS: Mixed Venous O2 Saturation 60.8 %
--- NOTE | 2025-01-10 11:27 | W.PN.INTV ---
Today's Communication / Plan
Recommendations
- Continue incentive spirometry
-Activity as tolerated
Assessment
-
Very pleasant 69-year-old gentleman with history of CLL, not on any current treatment, presented to the emergency room with recurrent episodes of upper abdominal pain, feeling bloated. Patient reportedly having these episodes over last few weeks
but they will be intermittent. Today he developed the episode and it did not improve and subsequently patient developed diaphoresis and decided to seek medical care. In the emergency room patient found to have anterior lateral ST elevation and was
taken to Hot Press Operator. Postprocedure patient was brought to cardiovascular ICU with Impella device in place. Health Program Specialist consultation was requested for further management.
#1. Acute ST elevation [place]
-S/p PCI, with Impella
-Patient off all drips, no longer on pressors or nitro. PA catheter still in place
-Patient chest pain-free during evaluation
-Management per cardiology service, currently on aspirin, Brilinta and statins. Coreg and valsartan also started.
-Keep potassium 4 above and magnesium 2 or above.
-Currently on Lasix, monitor electrolytes
#2. History of CLL
-Patient reports prior treatment and currently being monitored closely
-Continue to monitor white count
-Hemodynamically stable, not on any pressor therapy,
-Patient is chest pain-free
-No prior known history of pulmonary disease
-Use inhalers on an as-needed basis
We will follow
Critical Care time 30 mins -- The patient is admitted for acute critical illness for the treatment of vital organ failure and/or prevention of further life-threatening conditions. Total care includes time spent in review of history, physical exam,
medications, hemodynamic/ventilator parameters, laboratory data, imaging and discussion with house staff, pharmacy, respiratory therapy, signal helper, and nursing.
ECHO 01/2025:
1. Normal left ventricular size with severe left ventricular disc function, EF
20-25% by visual estimate. Severe global hypokinesis, basal segments contract
best. Severe hypo-akinesis of the apex, inferoapex, apical septum, apical
anterior segments. Impella not present in left ventricle
2. Mild mitral regurgitation with mildly dilated left atrium
3. Trace-mild aortic regurgitation
4. Normal right heart, Mcintosh-Chasidy catheter present
5. Impella visualized in ascending aorta with tip in right sinus of Valsalva
Subjective Dataa
Subjective Data
Date of Service:
Date of Service: January 10, 2025
Subjective:
Patient comfortably sitting in bed in no acute distress. Denies any chest pain or shortness of breath.
Review of Systems
Genitourinary: Other (All 14 systems reviewed and negative except as stated above in the history of present illness.)
Objective Data
Data Reviewed
Vital Signs / I&O / Oxygen:
Vital Signs
Temp Pulse Resp BP Pulse Ox
99 F 74 12 109/76 98
01/10/25 11:00 01/10/25 11:00 01/10/25 11:00 01/10/25 11:00 01/10/25 11:09
Intake and Output
01/09/25 01/10/25 01/11/25
05:59 06:59 06:59
Intake Total 620 / 620
Output Total 200 / 200
Balance 420 / 420
SaO2 98
Nasal Cannula flow liters per 98
minute
Physical Exam
General: Comfortable
HEENT: Normocephalic
Cardiovascular: Regular Rhythm
Respiratory: Clear and Non-Labored Respirations
GI: Distended (Mildly distended but no rebound or guarding)
Neurology: Awake and Alert
Labs/Micro/Reports
Lab Data
01/10/25 08:57
01/10/25 08:57
Laboratory Results
01/10/25
04:57
PT 15.0 H
INR 1.15
--- NOTE | 2025-01-10 12:23 | W.PN.CARDCBS ---
Today's Communication / Plan
-
See above plan.
Supportive post MS care
Impression / Plan
-
Family Physician: Margaret Bernal
Oncologist: Curry Jane MD ([facility])
Nurse Care Manager: None prior to admission, initial consult Axel Sanchez
Impression:
Presented 01/07/2025 with waxing and waning epigastric discomfort and chest pain
Acute ST elevation anterolateral wall MS
s/p mid left main with a 4.0 x 12 mm [place] stent (01/07/2025)
s/p ostial LAD 3.25 x 28 mm Xience stent and overlapping 3.5 x 18 mm distal to the initial stent (01/07/2025)
s/p ostial ramus intermedius with a 3.5 x 12 mm [place] stent (01/07/2025)
Impella device implant 01/07/2025
Significantly elevated troponin, greater than 400
Ischemic cardiomyopathy, EF 20 to 25%
Elevated LFTs
CLL stage 3, Rituxan x 6 cycles 2013
Hypertension
GERD
Gout
Cardiac catheterization 01/07/2025: Dominance: Left. LEFT MAIN: Large left main. Imaging in RO cranial view is notable for contrast filling of a possible disrupted plaque, s/p mid left main with a 4.0 x 12 mm Christopher stent.
LEFT ANTERIOR DESCENDIN% occluded proximally with the distal vessel noted to fill via left to left and faint right to left collaterals, s/p ostial LAD 3.25 x 28 mm Xience stent and overlapping 3.5 x 18 mm distal to the initial stent
RAMUS: 95% ostial stenosis with filling defect suggestive of thrombus. s/p ostial ramus intermedius with a 3.5 x 12 mm [place] stent
CIRCUMFLEX: Large-caliber dominant circumflex
RIGHT CORONARY ARTERY: Subselective cannulation and critically ill patient
HEMODYNAMICS : mmHg AO (s/d, m) : 133/81, 69; LV (s/d) : 123/31; LVEDP : 55
Echo 01/07/2025: EF 20 to 25%, thrombus adherent to mid inferoseptal and mid inferior wall cannot be excluded. Impella in place, 3.7 cm from leaflets. Mild AI with indwelling Impella
Plan:
Presented 01/07/2025 with waxing and waning epigastric discomfort and chest pain and was found to have abnormal EKG concerning for evolving anterolateral MS. Patient was referred for emergent catheterization/STEMI alert
Patient overall is doing remarkably well.
Acute ST elevation anterolateral wall MS with resultant ischemic cardiomyopathy, EF 20-25%
-s/p mid left main with a 4.0 x 12 mm Christopher stent post dilated to high pressures with a 5.0 mm , s/p ostial LAD 3.25 x 28 mm Xience stent and overlapping 3.5 x 18 mm distal to the initial stent post dilated with a 3.5 mm NC balloon distally and 4.0
mm NC balloon, and s/p ostial ramus intermedius with a 3.5 x 12 mm [place] stent (01/07/2025) and post dilated with a 3.5 mm NC balloon.
-Troponin peaked at greater than 400 x 2, continue to monitor and trend
-Impella 01/08/25. Right groin looks well.
-A-line was correlating with noninvasive blood pressure measurements but became positional and was discontinued yesterday, 01/09/2025
-Hemodynamically doing well: PA pressures 39/19. Right atrial pressure 3. Cardiac index 2.818. SVR 10 12/10 - 11/04/2008. Blood pressures 109/76. Heart rates sinus in the 70s. 98% on room air.
-Will hold morning Lasix and reassess prior to afternoon dose. Will discontinue [place] catheter and DC Cordis.
-Continue new start valsartan and continue carvedilol
-Slowly adjust therapy towards GDMT
-Monitor renal function closely, slight increase today not unexpected.
-Monitor electrolytes closely keeping K greater than 4, mag greater than 2
-Monitor telemetry closely; had short runs of NSVT which improved with repletion of electrolytes.
-Dual antiplatelet therapy with aspirin and Brilinta for minimum of 1 year
-Continue pantoprazole
-Prestatin lipids TC 142, HDL 39, LDL 83, triglycerides 103, started on high intensity atorvastatin
-Hemoglobin A1c 5.5%
-Increase activity
-I-S
Abnormal LFTs consistent with shock a liver. Continue to monitor
Abdominal distention with abdominal Imaging suggesting ileus. Fortunately patient had large bowel movement today. No nausea or vomiting.
CLL with prior Rituxan treatment 2013. Followed by heme-onc at [facility]
Okay to transfer to IVU
HPI 01/07/2025:
64 yo WM h/o CLL, HTN, non smoker, social ETOH, father with MS @71. He has been having epigastric pain for the last 4 weeks, this morning at work ([employer]) the pain returned and did not resolve. On arrival to ER CP 8/10 radiating to b/l UE/neck
with 2 sl nitro down to 5/10. EKG with anterior/lateral KULWINDER. 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
Progress Note - Nurse Care Manager
Subjective
Date of Service: January 10, 2025
Patient seen and examined. Currently out of bed to chair and reportedly slept great last night. Had a large nonbloody bowel movement this morning. No chest pain or pressure. Denies shortness of breath or dizziness.
Objective
Labs:
01/10/25 08:57
01/10/25 08:57
Labs
Hgb 10.3 g/dL (13.0-18.0) L D 01/10/25 08:57
Hct 32.0 % (39.0-52.0) L 01/10/25 08:57
Plt Count 211 10^3/uL (130-400) D 01/10/25 08:57
PT 15.0 Sec (11.4-14.6) H 01/10/25 04:57
INR 1.15 01/10/25 04:57
APTT Cancelled 01/08/25 19:00
Sodium 134 mmol/L (135-145) L 01/10/25 08:57
Potassium 4.2 mmol/L (3.5-5.1) 01/10/25 08:57
BUN 41 mg/dl (9-20) H 01/10/25 08:57
Creatinine 1.5 mg/dL (0.7-1.3) H 01/10/25 08:57
Glucose 137 mg/dl (70-99) H 01/10/25 08:57
Troponins
01/07/25 01/07/25 01/08/25
13:16 20:54 04:00
Troponin I > 400.000 H* D > 400.000 H* 359.000 H*
01/08/25 01/08/25 01/09/25
11:34 19:02 03:44
Troponin I 239.000 H* D 169.000 H* D 140.000 H*
01/09/25
12:00
Troponin I Cancelled
Vital Signs and I&O:
Vital Signs
Temp Pulse Resp BP Pulse Ox
99 F 74 12 109/76 98
01/10/25 11:00 01/10/25 11:00 01/10/25 11:00 01/10/25 11:00 01/10/25 11:09
Vital Signs
Temp Pulse Resp BP Pulse Ox
99 F 74 12 109/76 98
01/10/25 11:00 01/10/25 11:00 01/10/25 11:00 01/10/25 11:00 01/10/25 11:09
Intake & Output
01/08/25 01/09/25 01/10/25 01/11/25
05:59 05:59 06:59 06:59
Intake Total 620 / 620
Output Total 200 / 200
Balance 420 / 420
Physical Exam
Physical Exam
Gen: awake, alert, oriented, NAD, room air
HEENT: Mucous membranes moist. Positive cordis/[place] right IJ
Lungs: Bronchovesicular breath sounds clear but decreased
CV: Regular. Positive S1-S2. No murmurs. No rub
Abd: Mildly distended positive bowel sounds
Ext: No edema. Right groin site without hematoma. Radial site intact.
--- NOTE | 2025-01-10 12:46 | PTCARENOTE ---
pt VSS, pt placed back to bed. ROSA saunders/netta dc'd as ordered. +BM x2. pt OOB in chair for lunch.
--- NOTE | 2025-01-10 16:22 | PTCARENOTE ---
pt VSS, no changes in assessment. no c/o CP or SOB. ambulating in hallway independently.
[2025-01-10] MEDS: LIPITOR 80 MG PO (17:17)
[2025-01-10] MEDS: SENOKOT-S PO (19:46)
--- NOTE | 2025-01-10 20:59 | PTCARENOTE ---
Patient received as transfer from CVICU. Ambulated independently in the lainez. Patient denies chest pain and/or feeling lightheaded/dizzy. Sinus rhythm on telemetry. Oxygen saturation on room air 97-98%. Previous right IJ site with gauze and
tegaderm, C/D/I. 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 Right groin puncture with gauze and tegaderm C/D/I, pedal pulse palpable. Plan of care discussed with patient. Medications including Brilinta and Metoprolol
discussed. Call pearson within reach. Care ongoing.
[2025-01-11 03:55] VITALS: BP 117/79
[2025-01-11 04:54] LABS: ALT (SGPT) 43 U/L (0-50); AST (SGOT) 75 U/L (17-59); Albumin 2.5 g/dl (3.5-5.0); Alkaline Phosphatase 68 U/L (38-126); Blood Urea Nitrogen 43 mg/dl (9-20); Calcium 7.8 mg/dl (8.4-10.2); Carbon Dioxide 24 mmol/L (22-30); Chloride 103 mmol/L (98-107); Estimated Creatinine Clearance 56 ml/min; Glucose 103 mg/dl (70-99); Magnesium 2.3 mg/dl (1.6-2.3); Potassium 3.8 mmol/L (3.5-5.1); Sodium 134 mmol/L (135-145); Total Bilirubin 0.8 mg/dl (0.2-1.3); Total Protein 4.3 g/dl (6.3-8.2); eGFR 56.48
[2025-01-11 05:03] LABS: Hematocrit 25.5 % (39.0-52.0); Hemoglobin 8.4 g/dL (13.0-18.0); Mean Corp Hgb Conc. 32.9 g/dL (33.0-37.0); Mean Corpuscular Hgb 27.7 pg (27.0-31.0); Mean Corpuscular Volume 84.2 fL (80.0-94.0); Mean Platelet Volume 9.7 fL (7.4-10.4); Platelet Count 195 10^3/uL (130-400); Red Blood Cell Count 3.03 10^6/uL (4.70-6.10); Red Cell Dist. Width 14.4 % (11.5-14.5); White Blood Cell Count 45.1 10^3/uL (4.8-10.8)
[2025-01-11 07:38] VITALS: BP 119/76
[2025-01-11] MEDS: BRILINTA 90 MG PO ×2 (09:07→19:48)
[2025-01-11] MEDS: COREG 6.25 MG PO ×2 (09:07→19:48)
[2025-01-11] MEDS: DIOVAN 80 MG PO (09:07)
[2025-01-11] MEDS: PROTONIX 40 MG PO (09:08)
[2025-01-11] MEDS: LOW STRENGTH ASPIRIN 81 MG PO (09:08)
[2025-01-11] MEDS: PEPCID 20 MG PO (09:08)
[2025-01-11] MEDS: SENOKOT-S PO ×2 (09:09→19:51)
[2025-01-11] MEDS: FLUSH (NSS) 2 FLUSH IV (09:09)
--- NOTE | 2025-01-11 09:15 | W.PN.CARDCBS ---
Addendum entered and electronically signed by Ivis Fan PA-C 01/11/25 17:06:
Hyponatremia should be added to list of diagnoses
Addendum entered and electronically signed by Axel Dukes MD 01/11/25 11:10:
64-year-old man with CLL, hypertension, GERD, gout admitted 01/07/2025 with acute anterior GA and cardiogenic shock necessitating primary PCI and Impella placement. Troponin greater than 400.
Cardiac catheterization 01/07/2025: LVEDP 55, possible disrupted left main plaque, 100% proximal LAD, distal left to left and right to left collaterals, 95% ostial ramus with thrombus, dominant circumflex, no obvious circumflex disease, overlapping
3.25 and 3.5 Xience stents to LAD, stent to ostial ramus, Impella placed. Mid to distal LAD was probably PATENT COUNSEL and appears to be not amenable to revascularization. Suspected dissection of left main
Currently he feels very well. It has been 3 days since Impella was removed.
Meds: Aspirin 81 mg a day, ticagrelor 90 mg p.o. twice daily, pantoprazole 40 mg a day, furosemide 40 mg IV twice daily on hold, atorvastatin 80 mg a day, famotidine 20 mg daily, valsartan 80 mg daily, carvedilol 6.25 twice daily
119/76, pulse 70, respirate 18, afebrile, intake and output likely incomplete, weight is pending was 85.5 yesterday, head neck exam unremarkable, lungs are clear, cardiac exam regular rate and rhythm, abdomen benign, extremities without clubbing
sinus edema no obvious murmurs, JVD okay
White count 45.1, hemoglobin 8.4, had been 10.3 but 8.5 before, BUN/creatinine 43 and 1.4, had been 1.5, potassium 3.8, proBNP was 13,200
Plan:
He continues to look very well and is exceeding expectations given the size of his myocardial infarction.
Currently undergoing repeat echocardiography to determine whether left ventricular thrombus is present. If so, he will need addition of Eliquis with triples for 1 week and then either Plavix or Brilinta plus Eliquis.
Consider transition to Entresto from valsartan.
Utility of spironolactone in acute GA currently uncertain.
Also utility of SGLT2 antagonist in the setting not entirely clear.
Will continue to hold furosemide given no evidence of heart failure on exam. Check proBNP in AM.
Okay for discharge planning.
Original Note:
Today's Communication / Plan
-
Replete potassium
Continue carvedilol, valsartan, aspirin, Brilinta, atorvastatin
Consider starting low-dose Lasix versus low-dose Aldactone
Impression / Plan
-
Family Physician: Margaret Bernal
Oncologist: Curry Jane MD ([facility])
Dispensary Technician: None prior to admission, initial consult Axel Sanchez
Impression:
Presented 01/07/2025 with waxing and waning epigastric discomfort and chest pain
Acute ST elevation anterolateral wall GA
s/p mid left main with a 4.0 x 12 mm Christopher stent (01/07/2025)
s/p ostial LAD 3.25 x 28 mm Xience stent and overlapping 3.5 x 18 mm distal to the initial stent (01/07/2025)
s/p ostial ramus intermedius with a 3.5 x 12 mm Christopher stent (01/07/2025)
Impella device implant 01/07/2025
Significantly elevated troponin, greater than 400
Ischemic cardiomyopathy, EF 20 to 25%
Elevated LFTs
CLL stage 3, Rituxan x 6 cycles 2013
Hypertension
GERD
Gout
Cardiac catheterization 01/07/2025: Dominance: Left. LEFT MAIN: Large left main. Imaging in RO cranial view is notable for contrast filling of a possible disrupted plaque, s/p mid left main with a 4.0 x 12 mm [place] stent.
LEFT ANTERIOR DESCENDIN% occluded proximally with the distal vessel noted to fill via left to left and faint right to left collaterals, s/p ostial LAD 3.25 x 28 mm Xience stent and overlapping 3.5 x 18 mm distal to the initial stent
RAMUS: 95% ostial stenosis with filling defect suggestive of thrombus. s/p ostial ramus intermedius with a 3.5 x 12 mm Christopher stent
CIRCUMFLEX: Large-caliber dominant circumflex
RIGHT CORONARY ARTERY: Subselective cannulation and critically ill patient
HEMODYNAMICS : mmHg AO (s/d, m) : 133/81, 69; LV (s/d) : 123/31; LVEDP : 55
Echo 01/07/2025: EF 20 to 25%, thrombus adherent to mid inferoseptal and mid inferior wall cannot be excluded. Impella in place, 3.7 cm from leaflets. Mild AI with indwelling Impella
Plan:
Presented 01/07/2025 with waxing and waning epigastric discomfort and chest pain and was found to have abnormal EKG concerning for evolving anterolateral GA. Patient was referred for emergent catheterization/STEMI alert
Patient overall is doing remarkably well.
Acute ST elevation anterolateral wall GA with resultant ischemic cardiomyopathy, EF 20-25%
-s/p mid left main with a 4.0 x 12 mm [place] stent post dilated to high pressures with a 5.0 mm, s/p ostial LAD 3.25 x 28 mm Xience stent and overlapping 3.5 x 18 mm distal to the initial stent post dilated with a 3.5 mm NC balloon distally and 4.0 mm
NC balloon, and s/p ostial ramus intermedius with a 3.5 x 12 mm Christopher stent (01/07/2025) and post dilated with a 3.5 mm NC balloon.
-Troponin peaked at greater than 400 x 2, continue to monitor and trend
-Impella out 01/08/25. Right groin looks well.
-GDMT continue valsartan and carvedilol. Slowly adjust therapy to maximize GDMT with Aldactone or SGLT2 inhibitor
-Did not get lasix 01/10. Creat improved to 1.4. Appears euvolemic. Consider starting Lasix 40 mg daily vs low dose Spironolactone
-Monitor renal function closely, stable 1.4
-Replete K+ 3.8, Mag 2.3
-Monitor telemetry closely; had short runs of NSVT which improved with repletion of electrolytes.
-Dual antiplatelet therapy with aspirin and Brilinta for minimum of 1 year
-Continue pantoprazole
-Prestatin lipids TC 142, HDL 39, LDL 83, triglycerides 103, started on high intensity atorvastatin
-Hemoglobin A1c 5.5%
-Increase activity
-I-S
Abnormal LFTs consistent with shock a liver. Have almost normalized on labs 01/11 (AST 75/ALT 43)
Abdominal distention with abdominal Imaging suggesting ileus. Fortunately patient had large bowel movement 01/10 with resolved discomfort. No nausea or vomiting.
CLL with prior Rituxan treatment 2013. Followed by heme-onc at [facility]
HPI 01/07/2025:
64 yo WM h/o CLL, HTN, non smoker, social ETOH, father with GA @70. He has been having epigastric pain for the last 4 weeks, this morning at work ([employer]) the pain returned and did not resolve. On arrival to ER CP 8/10 radiating to b/l UE/neck
with 2 sl nitro down to 5/10. EKG with anterior/lateral KULWINDER. 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
Progress Note - Dispensary Technician
Subjective
Date of Service: January 11, 2025
Patient seen and examined. Patient sitting up in chair. Patient reports that he feels well without chest pain, shortness of breath, dizziness or lightheadedness. Still feels occasional 'queasiness' but denies abdominal pain, nausea or vomiting
Objective
Labs:
01/11/25 04:01
01/11/25 04:01
Labs
Hgb 8.4 g/dL (13.0-18.0) L 01/11/25 04:01
Hct 25.5 % (39.0-52.0) L 01/11/25 04:01
Plt Count 195 10^3/uL (130-400) 01/11/25 04:01
PT 15.0 Sec (11.4-14.6) H 01/10/25 04:57
INR 1.15 01/10/25 04:57
APTT Cancelled 01/08/25 19:00
Sodium 134 mmol/L (135-145) L 01/11/25 04:01
Potassium 3.8 mmol/L (3.5-5.1) 01/11/25 04:01
BUN 43 mg/dl (9-20) H 01/11/25 04:01
Creatinine 1.4 mg/dL (0.7-1.3) H 01/11/25 04:01
Glucose 103 mg/dl (70-99) H 01/11/25 04:01
Troponins
01/08/25 01/08/25 01/09/25
11:34 19:02 03:44
Troponin I 239.000 H* D 169.000 H* D 140.000 H*
01/09/25
12:00
Troponin I Cancelled
Vital Signs and I&O:
Vital Signs
Temp Pulse Resp BP Pulse Ox
98.1 F 70 18 119/76 97
01/11/25 07:36 01/11/25 08:00 01/11/25 07:36 01/11/25 07:38 01/11/25 07:36
Vital Signs
Temp Pulse Resp BP Pulse Ox
98.1 F 70 18 119/76 97
01/11/25 07:36 01/11/25 08:00 01/11/25 07:36 01/11/25 07:38 01/11/25 07:36
Intake & Output
01/09/25 01/10/25 01/11/25 01/12/25
05:59 06:59 06:59 06:59
Intake Total 630 / 630
Output Total 1075 / 1075
Balance -445 / -445
Physical Exam
Physical Exam
GEN: No distress, awake, Ox3
HEENT: supple, anicteric, mmm
LUNGS: CTA bilaterally, no wheezes/rales
CV: Reg, S1/S2, no murmur, rub or gallop
ABD: soft, BS+, NT/ND
EXT: No edema, clubbing or cyanosis;
NEURO: Gross non-focal
SKIN: Improving petechial rash of right hand, warm, dry, pink
--- NOTE | 2025-01-11 09:44 | W.PN.PUL.V3 ---
Today's Communication / Plan
-
Wean oxygen.
Increased activity per cardiology.
Pulmonary-We'll sign off
Assessment
-
69-year-old gentleman with history of CLL, not on any current treatment, presented to the emergency room with recurrent episodes of upper abdominal pain, feeling bloated. Patient reportedly having these episodes over last few weeks but they will be
intermittent. Today he developed the episode and it did not improve and subsequently patient developed diaphoresis and decided to seek medical care. In the emergency room patient found to have anterior lateral ST elevation and was taken to Cath
Lab. Postprocedure patient was brought to cardiovascular ICU with Impella device in place. Sterile Processing Manager consultation was requested for further management.
#1. Acute ST elevation CT
-S/p PCI, with Impella
-Patient off all drips, no longer on pressors or nitro. PA catheter still in place
-Patient chest pain-free during evaluation
-Management per cardiology service, currently on aspirin, Brilinta and statins. Coreg and valsartan also started.
-Keep potassium 4 above and magnesium 2 or above.
-Currently on Lasix, monitor electrolytes
#2. History of CLL
-Patient reports prior treatment and currently being monitored closely
-Continue to monitor white count
-Hemodynamically stable, not on any pressor therapy,
-Patient is chest pain-free
-No prior known history of pulmonary disease
-Use inhalers on an as-needed basis
Respiratory status now stable and oxygen weaned-pulmonary and critical care. We'll sign off
Subjective Data
-
Date of Service:
Date of Service: January 11, 2025
Chief Complaint: Pulmonary Follow Up and Dyspnea Follow Up
Subjective:
No complaints of chest pain, shortness of breath at rest, chest congestion, productive cough
Review of Systems
General: Other
Objective Data
Data Reviewed
Vital Signs / I&O:
Vital Signs
Temp Pulse Resp BP Pulse Ox
98.1 F 70 18 119/76 97
01/11/25 07:36 01/11/25 08:00 01/11/25 07:36 01/11/25 07:38 01/11/25 07:36
Intake and Output
01/10/25 01/11/25 01/12/25
06:59 06:59 06:59
Intake Total 630 / 630
Output Total 1075 / 1075
Balance -445 / -445
SaO2: 97
Nasal Cannula flow liters per minute: 98
Physical Exam
General: Respiratory Distress and Comfortable
HEENT: Normocephalic and Anicteric
Cardiovascular: S1-S2, Regular Rhythm and Murmur (n)
Respiratory: Wheeze (n), Crackles (n), Rhonchi (n), Non-Labored Respirations and Accessory Resp Muscle Use (n)
GI: Soft, Non Distended and Non Tender
Neurology: Awake, Alert and No Motor Deficits
Skin: Warm, Good Color, Cyanosis (n), Jaundice (n) and Rash
Labs/Micro/Reports
Lab Data
01/11/25 04:01
01/11/25 04:01
--- NOTE | 2025-01-11 09:56 | PTCARENOTE ---
Received patient this morning sitting oob in the chair. Offers no complaints, feels good and in good spirits. Reinforced medication teaching, CAD booklet given to the patient.
[2025-01-11] MEDS: KCL 40 MEQ PO (10:10)
--- NOTE | 2025-01-11 10:43 | CARDSERVLU ---
Echocardiogram with Lumason completed after protocol screening completed. Allergies verified.
Patent IV site: Left arm basilic 18 G PC site clear
IV site flushed with 0.9% NaCl pre and post administration.
Diluted bolus method utilized to enhance visualization of ventricular hill.
Total volume given: ___3_ mL
Patient tolerated all procedures well without complications.
[2025-01-11 11:15] VITALS: BP 124/78
--- NOTE | 2025-01-11 11:50 | PN.CDI ---
CDI
- -
CDI:
Physician Documentation Request
Admit Date: 01/07/25 12:08
Dear Doctor /PA,
Please review the following and provide your response in the progress notes.
Clinical Indicators:
Pt admitted with STEMI/Cardiogenic shock s/p PCI /Impella device
Sodium levels are as below / Pt was on IV Lasix/ Did get IVFs in Cath
01/07/25 01/08/25 01/09/25
20:54 03:59 03:44
Sodium 133 L 133 L 131 L
01/10/25 01/10/25 01/11/25
04:57 08:57 04:01
Sodium 134 L 134 L 134 L
Based on the above, could you clarify in the progress notes, the appropriate diagnosis, if significant, that supports the above abnormalities and additional evaluation, monitoring and/or treatment rendered:
Hyponatremia
Abnormal lab value only
Other ( please specify)
Use of terms such as suspected, likely, concern for, or probable (associated with a specific diagnosis that is being evaluated, monitored, or treated as if it exists) are acceptable and can be coded in the inpatient setting, when documented at the
time of discharge.
Thank you,
Cherelle Keating RN
CDI Specialist
[place] [employer]
Please use your independent medical judgment in providing your response.
[2025-01-11 14:46] VITALS: BP 120/80
[2025-01-11] MEDS: LIPITOR 80 MG PO (17:56)
[2025-01-11 19:16] VITALS: BP 110/74
--- NOTE | 2025-01-11 22:23 | PTCARENOTE ---
Assumed care of the pt @ 1900 Pt AAOx3 sitting up in chair. SR on the monitor VSS. Denies pain at this time. Call pearson within reach.
[2025-01-11 22:54] VITALS: BP 102/67
[2025-01-12 04:01] VITALS: BP 115/77
[2025-01-12 07:24] VITALS: BP 121/84
[2025-01-12] MEDS: COREG 6.25 MG PO ×2 (07:45→20:22)
[2025-01-12] MEDS: BRILINTA 90 MG PO (07:45)
[2025-01-12] MEDS: DIOVAN 80 MG PO (07:46)
[2025-01-12] MEDS: LOW STRENGTH ASPIRIN 81 MG PO (07:46)
[2025-01-12] MEDS: PEPCID 20 MG PO (07:47)
[2025-01-12] MEDS: PROTONIX 40 MG PO (07:47)
[2025-01-12] MEDS: SENOKOT-S PO ×2 (07:48→20:23)
--- NOTE | 2025-01-12 08:04 | PTCARENOTE ---
Rec'd Pt at change of shift, sitting OOB in chair, offers no complaints, VSS, pt hoping to be d/c'd today.
--- NOTE | 2025-01-12 10:01 | W.PN.CARDCBS ---
Addendum entered and electronically signed by Axel Dukes MD 01/12/25 12:22:
Patient with brief episode atrial fibrillation last night, currently sinus rhythm, he feels well, option of LifeVest discussed with patient, he wishes to proceed
Medications: Aspirin 81 mg a day, pantoprazole 40 mg a day, furosemide 40 IV twice daily on hold, atorvastatin 80 mg a day, Pepcid, valsartan 80 mg a day, carvedilol 6.25 twice daily, clopidogrel 75 mg daily, apixaban 5 mg twice daily
121/84, pulse 73, respiratory rate 18, afebrile, sats 98%, lungs are clear, regular rate and rhythm, soft systolic murmur, JVD okay, no edema
proBNP 5380, had been 13,200
White count 45.1 yesterday, hemoglobin 8.4, platelets 195, hemoglobin had been 12.1 on admission, BUN and creatinine 36 and 1.3, potassium 4.2
Echo 01/11/2025: EF 25-30%, no thrombus seen
Impression:
See below
Plan:
Overall he looks reasonably well. He had a very brief run of atrial fibrillation last night. In and of itself, this is not an absolute indication for anticoagulation, but with severe LV dysfunction and risk of LV thrombus, very reasonable to
proceed with anticoagulation. Will transition to clopidogrel and Eliquis with short-term aspirin therapy.
Will arrange for LifeVest.
proBNP still elevated but improved, now approximately 5300. LV function may be modestly improved compared to early in hospital stay.
Continue valsartan and carvedilol. Spironolactone has been started. We could consider Entresto. Currently, he is not loop diuretic and no overt evidence of heart failure.
Anticipate discharge in a.m.
Original Note:
Today's Communication / Plan
-
consider transitioning losartan to entresto
consider low dose lasix vs spironolactone dependent on repeat proBNP
consideration for lifevest
add eliquis 5mg BID. transition brilinta to plavix.
for possible DC to home later today vs in AM
Impression / Plan
-
Family Physician: Margaret Bernal
Oncologist: Curry Jane MD ([facility])
Organ Tuner Electronic: None prior to admission, initial consult Axel Sanchez
Impression:
Presented 01/07/2025 with waxing and waning epigastric discomfort and chest pain
Acute ST elevation anterolateral wall WI
s/p mid left main with a 4.0 x 12 mm Dilliner stent (01/07/2025)
s/p ostial LAD 3.25 x 28 mm Xience stent and overlapping 3.5 x 18 mm distal to the initial stent (01/07/2025)
s/p ostial ramus intermedius with a 3.5 x 12 mm Christopher stent (01/07/2025)
Impella device implant 01/07/2025, explant 01/08/25
Significantly elevated troponin, greater than 400
Ischemic cardiomyopathy, EF 20 to 25%
Acute HFrEF
Elevated LFTs
Hyponatremia
CLL stage 3, Rituxan x 6 cycles 2013
Hypertension
GERD
Gout
Cardiac catheterization 01/07/2025: Dominance: Left. LEFT MAIN: Large left main. Imaging in RO cranial view is notable for contrast filling of a possible disrupted plaque, s/p mid left main with a 4.0 x 12 mm Christopher stent.
LEFT ANTERIOR DESCENDIN% occluded proximally with the distal vessel noted to fill via left to left and faint right to left collaterals, s/p ostial LAD 3.25 x 28 mm Xience stent and overlapping 3.5 x 18 mm distal to the initial stent
RAMUS: 95% ostial stenosis with filling defect suggestive of thrombus. s/p ostial ramus intermedius with a 3.5 x 12 mm Dilliner stent
CIRCUMFLEX: Large-caliber dominant circumflex
RIGHT CORONARY ARTERY: Subselective cannulation and critically ill patient
HEMODYNAMICS : mmHg AO (s/d, m) : 133/81, 69; LV (s/d) : 123/31; LVEDP : 55
Echo 01/07/2025: EF 20 to 25%, thrombus adherent to mid inferoseptal and mid inferior wall cannot be excluded. Impella in place, 3.7 cm from leaflets. Mild AI with indwelling Impella
Plan:
-Mr. Rivera presented 01/07/2025 with waxing and waning epigastric discomfort and chest pain and was found to have abnormal EKG concerning for evolving anterolateral WI. Patient was referred for emergent catheterization/STEMI alert and underwent L
main stent, overlapping LAD stents x2, ostial ramus intermedius stent with impella 01/07/25. ECHO with EF 20-25%. Trop peaked at >400 x2. Impella was removed 01/08/25.
-Patient overall is doing remarkably well.
-continue GDMT of ICM with coreg, valsartan. would transition to entresto if cost affordable and BP tolerates
-has been diuresed. IV lasix held yesterday. awaiting proBNP today. does not appear grossly volume overloaded. would consider for low dose lasix if proBNP elevated vs low dose spironolactone if compensated from volume standpoint. Cr stable at 1.4 as
of 01/11, pending 01/12.
-hold off on SGLT2 inhibitor for now with baseline RI.
-he has had short runs of NSVT earlier in admission however nothing overnight. lifevest was discussed with patient and at bedside and he would like to learn more about it. would not be unreasonable given ICM with EF<35% and NSVT.
-will need repeat echo 40 days post revascularization to reassess EF. if remains <35%, would plan for ICD placement.
-also noted to have brief run of afib overnight. patient was symptomatic with fluttering feeling. there was also a question of LV thrombus, however repeat echo 01/11 without evidence of LV thrombus. [id number] score of 2 for HTN, vascular disease.
will plan for triple therapy for 1 week. currently on asa, brilinta. given need for eliquis, will transition brilinta to plavix in AM with 600mg load 01/13 followed by 75mg daily as of 01/14.
-continue PPI
-Prestatin lipids TC 142, HDL 39, LDL 83, triglycerides 103, started on high intensity atorvastatin
-Hemoglobin A1c 5.5%
-Abdominal distention with abdominal Imaging suggesting ileus. Fortunately patient had large bowel movement 01/10 with resolved discomfort. No nausea or vomiting.
-OOB/IS
-cardiac rehab
-he lives in [facility], however works in [place]. his has arranged for follow up appt to establish care closer to home with Dr. Gokul Monaco of [facility] on Monday 01/15. they will also follow up with [facility] as scheduled 01/21 and
then will transition fully to [facility] due to proximity to home. will provide patient with copies of echo and cath reports as well as discs to take with him.
-discussed activity restrictions. discussed he will be out of work at least until seen by us in office for reassessment.
-for possible DC to home later today vs in AM
-repeat BMP/proBNP in 1 week
-d/w nursing
HPI 01/07/2025:
64 yo WM h/o CLL, HTN, non smoker, social ETOH, father with WI @70. He has been having epigastric pain for the last 4 weeks, this morning at work ([employer]) the pain returned and did not resolve. On arrival to ER CP 8/10 radiating to b/l UE/neck
with 2 sl nitro down to 5/10. EKG with anterior/lateral KULWINDER. 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
Progress Note - Organ Tuner Electronic
Subjective
Date of Service: January 12, 2025
feeling well. no CP. no groin pain
Objective
Labs:
01/11/25 04:01
01/11/25 04:01
Labs
Hgb 8.4 g/dL (13.0-18.0) L 01/11/25 04:01
Hct 25.5 % (39.0-52.0) L 01/11/25 04:01
Plt Count 195 10^3/uL (130-400) 01/11/25 04:01
PT 15.0 Sec (11.4-14.6) H 01/10/25 04:57
INR 1.15 01/10/25 04:57
APTT Cancelled 01/08/25 19:00
Sodium 134 mmol/L (135-145) L 01/11/25 04:01
Potassium 3.8 mmol/L (3.5-5.1) 01/11/25 04:01
BUN 43 mg/dl (9-20) H 01/11/25 04:01
Creatinine 1.4 mg/dL (0.7-1.3) H 01/11/25 04:01
Glucose 103 mg/dl (70-99) H 01/11/25 04:01
Troponins
01/09/25
12:00
Troponin I Cancelled
Vital Signs and I&O:
Vital Signs
Temp Pulse Resp BP Pulse Ox
98.2 F 73 18 121/84 98
01/12/25 07:22 01/12/25 07:24 01/12/25 07:22 01/12/25 07:24 01/12/25 07:22
Vital Signs
Temp Pulse Resp BP Pulse Ox
98.2 F 73 18 121/84 98
01/12/25 07:22 01/12/25 07:24 01/12/25 07:22 01/12/25 07:24 01/12/25 07:22
Intake & Output
01/10/25 01/11/25 01/12/25 01/13/25
07:59 07:59 07:59 07:59
Intake Total 620 / 620 960 / 960
Output Total 1075 / 1075
Balance -455 / -455 960 / 960
Physical Exam
Physical Exam
GEN: No distress, awake, alert, oriented x3. sitting in chair
HEENT: supple, anicteric, mmm, eomi
LUNGS: CTA B/L, no wheezes/rales
CV: Reg, S1/S2, no murmur
ABD: soft, BS+, NT/ND
EXT: No cyanosis, clubbing, edema
NEURO: Gross non-focal
SKIN: Warm, pink, dry. No rash
[2025-01-12 10:24] LABS: NT-proBNP 5380 pg/ml
[2025-01-12] MEDS: ELIQUIS 5 MG PO ×2 (10:55→20:22)
[2025-01-12 11:08] LABS: Blood Urea Nitrogen 36 mg/dl (9-20); Calcium 7.9 mg/dl (8.4-10.2); Carbon Dioxide 24 mmol/L (22-30); Chloride 105 mmol/L (98-107); Estimated Creatinine Clearance 60 ml/min; Glucose 106 mg/dl (70-99); Potassium 4.2 mmol/L (3.5-5.1); Sodium 136 mmol/L (135-145); eGFR > 60.00
[2025-01-12 11:36] VITALS: BP 113/78
[2025-01-12] MEDS: ALDACTONE 12.5 MG PO (12:18)
--- NOTE | 2025-01-12 15:42 | CM ---
lifevest approved, fitting to be done at bedside at 9am.
[2025-01-12 16:14] VITALS: BP 119/71
[2025-01-12] MEDS: LIPITOR 80 MG PO (17:56)
[2025-01-12 19:31] VITALS: BP 120/80
--- NOTE | 2025-01-12 21:49 | PTCARENOTE ---
Pt rec'd at change of shift awake,alert. Pt stated he was feeling 'a little wheezy then changed and said no its more of a gurgle in his throat'. Lungs diminished throughout but no crackles noted, no cough. sat 95% on R/A. speech clear without sob
noted. Sinus on telemetry.
[2025-01-12 22:31] VITALS: BP 114/77
[2025-01-13] VITALS (8 sets, daily range): BP systolic 98–130; BP diastolic 66–84; BMI 26.7
--- NOTE | 2025-01-13 05:04 | PTCARENOTE ---
Pt reports no complaints of sob or cough this morning.
[2025-01-13 05:33] LABS: Blood Urea Nitrogen 33 mg/dl (9-20); Calcium 8.1 mg/dl (8.4-10.2); Carbon Dioxide 25 mmol/L (22-30); Chloride 108 mmol/L (98-107); Estimated Creatinine Clearance 60 ml/min; Glucose 102 mg/dl (70-99); Magnesium 2.1 mg/dl (1.6-2.3); Potassium 4.3 mmol/L (3.5-5.1); Sodium 136 mmol/L (135-145); eGFR > 60.00
[2025-01-13] MEDS: COREG 6.25 MG PO ×2 (06:20→20:14)
--- NOTE | 2025-01-13 06:26 | PTCARENOTE ---
At 0611 pt went into rapid afib while lying in bed. pt reports feeling some palpitations ht rate 130-140's. B/P 130/84. Am dose of Coreg given
[2025-01-13] MEDS: LOPRESSOR 5 MG IV (07:10)
--- NOTE | 2025-01-13 07:19 | W.PN.UPDATE ---
Update Note
Progress Note Update
CTSP this morning for recurrent Afib. Patient describes chest pressure that is less severe than pressure he had on admission and he also feels palpitations. Check ECG now, ordered by me. Check Troponin. NPO, ordered by me. Lopressor 5 mg IV x1 now,
ordered by me. Symptoms improved after Lopressor IV and HR improved to 115. Await ECG and labs. 31 min in critical care time and face to face.
[2025-01-13] MEDS: ELIQUIS 5 MG PO ×2 (09:03→20:14)
[2025-01-13] MEDS: ALDACTONE 12.5 MG PO (09:03)
[2025-01-13] MEDS: DIOVAN 80 MG PO (09:03)
[2025-01-13] MEDS: LOW STRENGTH ASPIRIN 81 MG PO (09:05)
[2025-01-13] MEDS: PROTONIX 40 MG PO (09:05)
[2025-01-13] MEDS: PEPCID 20 MG PO (09:05)
[2025-01-13] MEDS: PLAVIX 600 MG PO (09:08)
[2025-01-13] MEDS: FLUSH (NSS) 1 FLUSH IV (09:08)
[2025-01-13] MEDS: SENOKOT-S PO ×2 (09:09→20:14)
[2025-01-13] MEDS: MYLICON 80 MG PO (09:18)
--- NOTE | 2025-01-13 09:27 | W.PN.CARDCBS ---
Addendum entered and electronically signed by Medardo Patel MD 01/13/25 13:15:
I saw and examined the patient.
The Knife Operator's note was reviewed and I agree with the note.
Comment: Briefly, 64-year-old man presenting with acute anterior STEMI and underwent PCI to the left main, ostial LAD and ostial ramus. Post MT LVEF was 20 to 25% and patient required Impella support.
Patient was clinically improving and nearing discharge and then developed atrial fibrillation with rapid ventricular response this morning. Heart rates were elevated at the time of my evaluation and oral amiodarone was started. Currently back in
sinus rhythm at this time. Given his cardiomyopathy would continue amiodarone to maintain sinus rhythm. Eliquis started for cardioembolic prophylaxis.
With acute MT would continue aspirin/Plavix/Eliquis through 01/19 and then discontinue aspirin
Continue high intensity statin
With new ischemic cardiomyopathy would continue Coreg, valsartan, spironolactone
If not cost prohibitive, consider transition to Entresto and also add SGLT2
Will discharge on maintenance diuretic, tentatively Lasix 40 mg daily
Monitor in IVU overnight
Original Note:
Today's Communication / Plan
-
in afib as of 6:11AM. initiate amiodarone 400mg TID
repeat EKG in AM
plavix load today. continue asa, eliquis, plavix through 01/18, stop asa as of 01/19.
lifevest fitting
follow volume status, not presently on lasix
if remains in afib in AM, would plan for ENOCH/CV
DC planning
Impression / Plan
-
Family Physician: Margaret Bernal
Oncologist: Curry Jane MD ([facility])
Street Light Wirer: None prior to admission, initial consult Axel Sanchez
Impression:
Presented 01/07/2025 with waxing and waning epigastric discomfort and chest pain
Acute ST elevation anterolateral wall MT
s/p mid left main with a 4.0 x 12 mm Christopher stent (01/07/2025)
s/p ostial LAD 3.25 x 28 mm Xience stent and overlapping 3.5 x 18 mm distal to the initial stent (01/07/2025)
s/p ostial ramus intermedius with a 3.5 x 12 mm [place] stent (01/07/2025)Impella device implant 01/07/2025, explant 01/08/25
Significantly elevated troponin, greater than 400
Ischemic cardiomyopathy, EF 20 to 25%
Acute HFrEF
Elevated LFTs
Hyponatremia
Paroxysmal atrial fibrillation
CLL stage 3, Rituxan x 6 2013
Hypertension
GERD
Gout
Cardiac catheterization 01/07/2025: Dominance: Left. LEFT MAIN: Large left main. Imaging in RO cranial view is notable for contrast filling of a possible disrupted plaque, s/p mid left main with a 4.0 x 12 mm Christopher stent.
LEFT ANTERIOR DESCENDIN% occluded proximally with the distal vessel noted to fill via left to left and faint right to left collaterals, s/p ostial LAD 3.25 x 28 mm Xience stent and overlapping 3.5 x 18 mm distal to the initial stent
RAMUS: 95% ostial stenosis with filling defect suggestive of thrombus. s/p ostial ramus intermedius with a 3.5 x 12 mm Christopher stent
CIRCUMFLEX: Large-caliber dominant circumflex
RIGHT CORONARY ARTERY: Subselective cannulation and critically ill patient
HEMODYNAMICS : mmHg AO (s/d, m) : 133/81, 69; LV (s/d) : 123/31; LVEDP : 55
Echo 01/07/2025: EF 20 to 25%, thrombus adherent to mid inferoseptal and mid inferior wall cannot be excluded. Impella in place, 3.7 cm from leaflets. Mild AI with indwelling Impella
Plan:
-Mr. Rivera presented 01/07/2025 with waxing and waning epigastric discomfort and chest pain and was found to have abnormal EKG concerning for evolving anterolateral MT. Patient was referred for emergent catheterization/STEMI alert and underwent L
main stent, overlapping LAD stents x2, ostial ramus intermedius stent with impella 01/07/25. ECHO with EF 20-25%. Trop peaked at >400 x2. Impella was removed 01/08/25.
-Patient overall is doing remarkably well.
-he had very brief run of afib yesterday and was started on eliquis. today around 6:11AM he went into afib with RVR, was given IV lopressor x1 and remains in afib at this time. will initiate amiodarone 400mg TID
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 hopefully only needed for short term use.
-transitioning brilinta to plavix. for plavix load today. continue triple therapy with asa, plavix, eliquis through 01/19 then stop asa and continue plavix and eliquis
-if remains in afib in AM, would plan for ENOCH/CV
-continue PPI
-reported some chest pressure in setting of rapid afib. trop downtrending.
-continue GDMT of ICM with coreg, valsartan. low dose spironolactone added 01/12. could consider OP transition to entresto, however hypotension may prohibit
-has been diuresed. proBNP downtrending from admission. does not appear grossly volume overloaded. Cr continues to improve, 1.3 on 01/13
-hold off on SGLT2 inhibitor for now with baseline RI.
-he has had short runs of NSVT earlier in admission. given large MT, lifevest was discussed with patient and at bedside 01/12 in detail and he is being arranged for fitting 01/13.
-will need repeat echo 40 days post revascularization to reassess EF. if remains <35%, would plan for ICD placement.
-Prestatin lipids TC 142, HDL 39, LDL 83, triglycerides 103, started on high intensity atorvastatin
-Hemoglobin A1c 5.5%
-Abdominal distention with abdominal imaging suggesting ileus. Fortunately patient had large bowel movement 01/10 with resolved discomfort. No nausea or vomiting.
-OOB/IS
-cardiac rehab
-he lives in [facility], however works in [place]. his has arranged for follow up appt to establish care closer to home with Dr. Gokul Monaco of [facility] on Monday 01/15. they will also follow up with [facility] as scheduled 01/21 and
then will transition fully to [facility] due to proximity to home. will provide patient with copies of echo and cath reports as well as discs to take with him.
-discussed activity restrictions. discussed he will be out of work at least until seen by us in office for reassessment.
-for possible DC to home in AM
-repeat BMP/proBNP in 1 week
-d/w nursing
HPI 01/07/2025:
64 yo WM h/o CLL, HTN, non smoker, social ETOH, father with MT @70. He has been having epigastric pain for the last 4 weeks, this morning at work ([employer]) the pain returned and did not resolve. On arrival to ER CP 8/10 radiating to b/l UE/neck
with 2 sl nitro down to 5/10. EKG with anterior/lateral KULWINDER. 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
Progress Note - Street Light Wirer
Subjective
Date of Service: January 13, 2025
reports some fluttering. no present CP
Objective
Labs:
01/11/25 04:01
01/13/25 04:51
Labs
Hgb 8.4 g/dL (13.0-18.0) L 01/11/25 04:01
Hct 25.5 % (39.0-52.0) L 01/11/25 04:01
Plt Count 195 10^3/uL (130-400) 01/11/25 04:01
PT 15.0 Sec (11.4-14.6) H 01/10/25 04:57
INR 1.15 01/10/25 04:57
APTT Cancelled 01/08/25 19:00
Sodium 136 mmol/L (135-145) 01/13/25 04:51
Potassium 4.3 mmol/L (3.5-5.1) 01/13/25 04:51
BUN 33 mg/dl (9-20) H 01/13/25 04:51
Creatinine 1.3 mg/dL (0.7-1.3) 01/13/25 04:51
Glucose 102 mg/dl (70-99) H 01/13/25 04:51
Troponins
01/13/25
07:39
Troponin I 11.700 H*
Vital Signs and I&O:
Vital Signs
Temp Pulse Resp BP Pulse Ox
98.0 F 128 18 108/77 94
01/13/25 08:18 01/13/25 08:00 01/13/25 08:18 01/13/25 07:35 01/13/25 04:45
Vital Signs
Temp Pulse Resp BP Pulse Ox
98.0 F 128 18 108/77 94
01/13/25 08:18 01/13/25 08:00 01/13/25 08:18 01/13/25 07:35 01/13/25 04:45
Intake & Output
01/11/25 01/12/25 01/13/25 01/14/25
07:59 07:59 07:59 07:59
Intake Total 620 / 620 960 / 960
Output Total 1075 / 1075
Balance -455 / -455 960 / 960
Physical Exam
Physical Exam
GEN: No distress, awake, alert, oriented x3.
HEENT: supple, anicteric, mmm, eomi
LUNGS: CTA B/L, no wheezes/rales
CV: Irreg irreg, S1/S2, no murmur
ABD: soft, BS+, NT/ND
EXT: No cyanosis, clubbing, edema
NEURO: Gross non-focal
SKIN: Warm, pink, dry. No rash
[2025-01-13] MEDS: PACERONE 400 MG PO ×3 (10:01→22:07)
--- NOTE | 2025-01-13 10:36 | PTCARENOTE ---
Received patient this morning resting in bed in [place] with HR up to the 160's. Patient feels the palpitations and some difficulty with breathing. Notified Kelsey PRYOR, EKG done and troponin sent to the lab, patient given a stat dose of IV lopressor
with some relief. HR in the 120's at rest. To load patient with PO amiodarone, prior to administering dose, patient noted to now be in SR. Credentialing Assistant from [facility] in to see the patient and explained procedure. Assisted the patient with
removing vest since he will not be discharged until tomorrow. Patient feeling much better now that he is in SR.
[2025-01-13] MEDS: LASIX 40 MG PO (13:53)
[2025-01-13] MEDS: LIPITOR 80 MG PO (17:05)
--- NOTE | 2025-01-14 00:20 | PTCARENOTE ---
Pt remains in sinus. No c/o cp or sob. Lungs clear on r/a.
[2025-01-14 04:26] VITALS: BP 108/74
[2025-01-14 04:42] VITALS: BMI 26.5
--- NOTE | 2025-01-14 05:01 | PTCARENOTE ---
Pt has remained sinus throughout the night. No afib noted.
[2025-01-14 05:58] LABS: Blood Urea Nitrogen 35 mg/dl (9-20); Carbon Dioxide 22 mmol/L (22-30); Chloride 105 mmol/L (98-107); Estimated Creatinine Clearance 56 ml/min; Glucose 105 mg/dl (70-99); Potassium 4.4 mmol/L (3.5-5.1); Sodium 135 mmol/L (135-145); eGFR 56.48
[2025-01-14 07:26] VITALS: BP 125/80
--- NOTE | 2025-01-14 08:21 | W.PN.CARDCBS ---
Addendum entered and electronically signed by Nisa Cheung PA-C 01/14/25 16:52:
[id number]
Addendum entered and electronically signed by Rosa Rhodes MD 01/14/25 11:50:
I saw and examined the patient.
The Medical Scientific Liaison's note was reviewed and I agree with the note.
Comment: Status post acute ST elevation anterior lateral wall IN with complex intervention as noted below with Impella backup. Heart failure with reduced ejection fraction in the setting of myocardial infarction. Transient atrial fibrillation also
noted. Early in admission nonsustained VT without recurrence. He is doing great. He is ambulating without problem. He denies chest pain, palpitations, dizziness and syncope. Groin and wrist sites are stable. His is at the bedside.
Patient overall is doing remarkably well.
As noted for now triple therapy with asa, plavix eliquis through 01/19/25 then stop asa and continue eliquis and plavix
Continue PPI
Continue aggressive risk factor modification.
Continue GDMT of ICM with coreg, valsartan, spironolactone. Consider OP transition to entresto, however hypotension may prohibit.
Consider SGLT2 inhibitor also as an outpatient. Follow creatinine with renal insufficiency and creatinine 1.4.
LifeVest given decreased left ventricular ejection fraction and initial ventricular tachycardia noted during admission
Reassess ejection fraction at the 40-day gabo.
During hospital stay he was diuresed. proBNP downtrending from admission. Volume status clinically stable. Continue Lasix
Atrial fibrillation noted. No recurrence. Started on Eliquis.
He is going to see us locally for a single follow-up visit and he is going to establish also with Dr. Monaco in [place] given proximity to home.
Stable for discharge from a cardiac point of view. Greater than 30 minutes total discharge time
Original Note:
Today's Communication / Plan
-
for DC today
OP cardiac follow up arranged
Impression / Plan
-
Family Physician: Margaret Bernal
Oncologist: Curry Jane MD ([facility])
Environment Friendly Landscape Designer: None prior to admission, initial consult Axel Sanchez
Impression:
Presented 01/07/2025 with waxing and waning epigastric discomfort and chest pain
Acute ST elevation anterolateral wall IN
s/p mid left main with a 4.0 x 12 mm Christopher stent (01/07/2025)
s/p ostial LAD 3.25 x 28 mm Xience stent and overlapping 3.5 x 18 mm distal to the initial stent (01/07/2025)
s/p ostial ramus intermedius with a 3.5 x 12 mm Christopher stent (01/07/2025)Impella device implant 01/07/2025, explant 01/08/25
Significantly elevated troponin, greater than 400
Ischemic cardiomyopathy, EF 20 to 25%
Acute HFrEF
Elevated LFTs
Hyponatremia
Paroxysmal atrial fibrillation
CLL stage 3, Rituxan x 6 cycles 2013
Hypertension
GERD
Gout
Cardiac catheterization 01/07/2025: Dominance: Left. LEFT MAIN: Large left main. Imaging in RO cranial view is notable for contrast filling of a possible disrupted plaque, s/p mid left main with a 4.0 x 12 mm Christopher stent.
LEFT ANTERIOR DESCENDIN% occluded proximally with the distal vessel noted to fill via left to left and faint right to left collaterals, s/p ostial LAD 3.25 x 28 mm Xience stent and overlapping 3.5 x 18 mm distal to the initial stent
RAMUS: 95% ostial stenosis with filling defect suggestive of thrombus. s/p ostial ramus intermedius with a 3.5 x 12 mm Kerman stent
CIRCUMFLEX: Large-caliber dominant circumflex
RIGHT CORONARY ARTERY: Subselective cannulation and critically ill patient
HEMODYNAMICS : mmHg AO (s/d, m) : 133/81, 69; LV (s/d) : 123/31; LVEDP : 55
Echo 01/07/2025: EF 20 to 25%, thrombus adherent to mid inferoseptal and mid inferior wall cannot be excluded. Impella in place, 3.7 cm from leaflets. Mild AI with indwelling Impella
Plan:
-Mr. Rivera presented 01/07/2025 with waxing and waning epigastric discomfort and chest pain and was found to have abnormal EKG concerning for evolving anterolateral IN. Patient was referred for emergent catheterization/STEMI alert and underwent L
main stent, overlapping LAD stents x2, ostial ramus intermedius stent with impella 01/07/25. ECHO with EF 20-25%. Trop peaked at >400 x2. Impella was removed 01/08/25.
-Patient overall is doing remarkably well.
-was started on amiodarone yesterday for PAF. has remained in SR overnight. plan to decrease dose to 200mg twice daily for 4 weeks then decrease to 200mg daily starting 02/11/25.
-plan for triple therapy with asa, plavix eliquis through 01/19 then stop asa and continue eliquis and plavix
-continue PPI
-continue GDMT of ICM with coreg, valsartan, spironolactone. could consider OP transition to entresto, however hypotension may prohibit
-has been diuresed. proBNP downtrending from admission. does not appear grossly volume overloaded. Cr 1.4. continue po lasix 40mg daily upon DC. discussed following daily weights with patient at home
-hold off on SGLT2 inhibitor for now with baseline RI.
-he has had short runs of NSVT earlier in admission, however none in last 72 hours on review of tele. given large IN, lifevest was discussed with patient and at bedside 01/12 in detail and he is being arranged for fitting 01/13.
-will need repeat echo 40 days post revascularization to reassess EF. if remains <35%, would plan for ICD placement.
-Prestatin lipids TC 142, HDL 39, LDL 83, triglycerides 103, started on high intensity atorvastatin
-Hemoglobin A1c 5.5%
-Abdominal distention with abdominal imaging suggesting ileus. Fortunately patient had large bowel movement 01/10 with resolved discomfort. No nausea or vomiting.
-OOB/IS
-cardiac rehab
-he lives in [facility], however works in [place]. his has arranged for follow up appt to establish care closer to home with Dr. Gokul Monaco of [facility] on Monday 01/15. they will also follow up with [facility] as scheduled 01/21 and
then will transition fully to [facility] due to proximity to home. provided patient with copies of echo and cath reports as well as discs to take with him.
-discussed activity restrictions. discussed he will be out of work at least until seen by us in office for reassessment.
-repeat CBC/BMP/proBNP in 1 week
-plan for DC to home today with VN if possible
-d/w patient and via telephone. all questions answered
-total DC time 51 minutes
HPI 01/07/2025:
64 yo WM h/o CLL, HTN, non smoker, social ETOH, father with IN @70. He has been having epigastric pain for the last 4 weeks, this morning at work ([employer] the pain returned and did not resolve. On arrival to ER CP 8/10 radiating to b/l UE/neck
with 2 sl nitro down to 5/10. EKG with anterior/lateral KULWINDER. He was given heparin, brilinta, ASA and brought urgently to quality assurance qa lab technician.
Progress Note - Environment Friendly Landscape Designer
Subjective
Date of Service: January 14, 2025
Feeling well. No issues overnight
Objective
Labs:
01/11/25 04:01
01/14/25 04:36
Labs
Hgb 8.4 g/dL (13.0-18.0) L 01/11/25 04:01
Hct 25.5 % (39.0-52.0) L 01/11/25 04:01
Plt Count 195 10^3/uL (130-400) 01/11/25 04:01
PT 15.0 Sec (11.4-14.6) H 01/10/25 04:57
INR 1.15 01/10/25 04:57
APTT Cancelled 01/08/25 19:00
Sodium 135 mmol/L (135-145) 01/14/25 04:36
Potassium 4.4 mmol/L (3.5-5.1) 01/14/25 04:36
BUN 35 mg/dl (9-20) H 01/14/25 04:36
Creatinine 1.4 mg/dL (0.7-1.3) H 01/14/25 04:36
Glucose 105 mg/dl (70-99) H 01/14/25 04:36
Troponins
01/13/25
07:39
Troponin I 11.700 H*
Vital Signs and I&O:
Vital Signs
Temp Pulse Resp BP Pulse Ox
97.9 F 69 20 125/80 98
01/14/25 07:26 01/14/25 07:26 01/14/25 07:26 01/14/25 07:26 01/14/25 07:26
Vital Signs
Temp Pulse Resp BP Pulse Ox
97.9 F 69 20 125/80 98
01/14/25 07:26 01/14/25 07:26 01/14/25 07:26 01/14/25 07:26 01/14/25 07:26
Intake & Output
01/12/25 01/13/25 01/14/25 01/15/25
07:59 07:59 07:59 07:59
Intake Total 960 / 960
Balance 960 / 960
Physical Exam
Physical Exam
GEN: No distress, awake, alert, oriented x3. sitting in chair
HEENT: supple, anicteric, mmm, eomi
LUNGS: CTA B/L, no wheezes/rales
CV: Reg, S1/S2, no murmur
ABD: soft, BS+, NT/ND
EXT: No cyanosis, clubbing, edema
NEURO: Gross non-focal
SKIN: Warm, pink, dry. No rash
[2025-01-14] MEDS: DIOVAN 80 MG PO (08:39)
[2025-01-14] MEDS: ELIQUIS 5 MG PO (08:39)
[2025-01-14] MEDS: ALDACTONE 12.5 MG PO (08:39)
[2025-01-14] MEDS: PROTONIX 40 MG PO (08:40)
[2025-01-14] MEDS: PEPCID 20 MG PO (08:40)
[2025-01-14] MEDS: LOW STRENGTH ASPIRIN 81 MG PO (08:40)
[2025-01-14] MEDS: PACERONE 400 MG PO (08:40)
[2025-01-14] MEDS: LASIX 40 MG PO (08:40)
[2025-01-14] MEDS: PLAVIX 75 MG PO (08:40)
[2025-01-14] MEDS: FLUSH (NSS) 2 FLUSH IV (08:41)
[2025-01-14] MEDS: SENOKOT-S PO (08:41)
[2025-01-14] MEDS: COREG 6.25 MG PO (08:42)
--- NOTE | 2025-01-14 08:44 | W.DS.TRANS ---
DC Summary - Children Teacher
-
Discharge Instructions:
Discharge Diagnosis/Procedures STEMI, Angioplasty with stent to Left main, LAD
x 2, Ramus artery x 1, atrial fibrillation,
ischemic cardiomyopathy
Diet Low Cholesterol,2 Gram Sodium
Activity No strenuous activity
Additional Activity no heavy lifting greater than 10 pounds for 2
weeks!
Driving Restrictions No driving for 24 hours
Blood Work CBC/BMP/proBNP in 1 week
Others Tests You will need repeat echo in 40 days to
reevaluate ejection fraction (EF).
Other Services Cardiac Rehab,VN
Specialty Instructions Weigh Daily
Instructions:
Stand-Alone Forms: DC Instructions- Cath/EP Lab
Changes to Home Medications: Yes
Discharge Medications:
DC Medications w/original date entered in Imp[facility]
Lactobacillus acidophil,plantar-Bifido no.7 15 billion cell capsule 1 cap PO DAILY Gastrointestinal Issue 01/07/25
allopurinol 200 mg tablet 200 mg PO DAILY Gout 01/07/25
ascorbic acid (vitamin C) 1,000 mg tablet (Vitamin C) 1 g PO DAILY Supplement 01/07/25
cholecalciferol (vitamin D3) 10 mcg (400 unit) capsule (Vitamin D3) 10 mcg PO DAILY Supplement 01/07/25
geriatric multivitamin-min 1 tab PO DAILY Supplement 01/07/25
apixaban 5 mg tablet (Eliquis) 5 mg PO BID #60 tabs 01/12/25
atorvastatin 80 mg tablet 80 mg PO QPM #30 tabs 01/12/25
carvedilol 6.25 mg tablet 6.25 mg PO BID #60 tabs 01/12/25
clopidogrel 75 mg tablet 75 mg PO DAILY #30 tabs 01/12/25
famotidine 20 mg tablet 20 mg PO DAILY #30 tabs 01/12/25
pantoprazole 40 mg tablet,delayed release 40 mg PO DAILY #30 tabs 01/12/25
spironolactone 25 mg tablet 12.5 mg (1/2 x 25 mg) PO DAILY #30 tabs 01/12/25
valsartan 80 mg tablet 80 mg PO DAILY #30 tabs 01/12/25
amiodarone 200 mg tablet 200 mg PO BID #60 tabs 01/14/25
amiodarone 200 mg tablet 200 mg PO DAILY #30 tabs 01/14/25
aspirin 81 mg chewable tablet 81 mg PO DAILY #5 tabs 01/14/25
furosemide 40 mg tablet 40 mg PO DAILY #30 tabs 01/14/25
Home Medication Changes
valsartan dose has decreased
stop fish oil, hydralazine
continue asa, plavix, eliquis through 01/19 then stop asa
coreg, famoitidine, pantoprazole, spironolactone, lasix are new
amio 200mg BID for 4 weeks then decrease to 200mg daily
Pending Results: No
--- NOTE | 2025-01-14 09:14 | PTCARENOTE ---
Received patient this morning sitting oob in the chair, remains in SR, denies any pain or discomfort. Patient seen by cardiology PA, anxious to go home, awaiting blade balancer before being discharged.
--- NOTE | 2025-01-14 09:43 | CM ---
spoke to pt about vn consult. pt stated he did not feel like he needs VN, he states he confident with the lifevest and has information on all his new meds. he tells me he already takes meds for his CLL and has a pill box already at home, he will
add in the new meds. he says his brother is an emerg rm MD, his SERVANDO is a primary MD, and said he could call them with any questions. he is also planning on going back to work shortly and will not be homebound.
[2025-01-14 11:36] VITALS: BP 122/74
--- NOTE | 2025-01-14 12:49 | PTCARENOTE ---
Reviewed discharge instructions in detail with the patient and the . Reviewed all medications, changes to his previous meds, tapering schedule of amiodarone and eventual discontinuation of baby asa and they state their understanding. Reviewed
follow up appointments that are scheduled. patient given slip for lab work and information about cardiac rehab. Telemetry removed and the patient was able to place his life vest on without any difficulty. Patient discharged home with his . To
see a [place] presser first tomorrow.
[2025-01-14 14:20] LABS: TSH Reflex To Free T4 1.89 uIU/ml (0.47-4.68)
== END 2025-01-14 12:09 | disposition home or self-care (01) | DRG 215 ==
LOC: IVU 12:08
PROVIDERS: Internal Medicine Cardiovascular Disease; Internal Medicine Interventional Cardiology; Nurse Practitioner Adult Health; Physician Assistant; Physician Assistant Medical; ADMITTING PHYSICIAN Internal Medicine Interventional Cardiology; CONSULT PHYSICIAN Internal Medicine; EMERGENCY PHYSICIAN Student in an Organized Health Care Education/Training Program
PROC: 02HW3RZ Insertion of Short-term External Heart Assist System into Thoracic Aorta, Descending, Percutaneous Approach (ICD-10-PCS; 2025-01-07)
PROC: 027237Z Dilation of Coronary Artery, Three Arteries with Four or More Drug-eluting Intraluminal Devices, Percutaneous Approach (ICD-10-PCS; 2025-01-07)
PROC: B2111ZZ Fluoroscopy of Multiple Coronary Arteries using Low Osmolar Contrast (ICD-10-PCS; 2025-01-07)
PROC: 4A023N7 Measurement of Cardiac Sampling and Pressure, Left Heart, Percutaneous Approach (ICD-10-PCS; 2025-01-07)
PROC: 5A0221D Assistance with Cardiac Output using Impeller Pump, Continuous (ICD-10-PCS; 2025-01-07)
PROC: B241ZZ3 Ultrasonography of Multiple Coronary Arteries, Intravascular (ICD-10-PCS; 2025-01-07)
PROC: 4A023N6 Measurement of Cardiac Sampling and Pressure, Right Heart, Percutaneous Approach (ICD-10-PCS; 2025-01-08)
PROC: 02PW3RZ Removal of Short-term External Heart Assist System from Thoracic Aorta, Descending, Percutaneous Approach (ICD-10-PCS; 2025-01-08)
PROC: B2141ZZ Fluoroscopy of Right Heart using Low Osmolar Contrast (ICD-10-PCS; 2025-01-08)
DX: I21.09 ST elevation (STEMI) myocardial infarction involving other coronary artery of anterior wall (principal); J96.90 Respiratory failure, unspecified, unspecified whether with hypoxia or hypercapnia; R57.0 Cardiogenic shock; I50.21 Acute systolic (congestive) heart failure; C91.10 Chronic lymphocytic leukemia of B-cell type not having achieved remission; E87.1 Hypo-osmolality and hyponatremia; I25.10 Atherosclerotic heart disease of native coronary artery without angina pectoris; I10 Essential (primary) hypertension; K21.9 Gastro-esophageal reflux disease without esophagitis; I27.20 Pulmonary hypertension, unspecified; Z79.82 Long term (current) use of aspirin; Z79.01 Long term (current) use of anticoagulants
CPT/HCPCS: 93308; 33990; 33992; 71045; 74018; 76937; 80048; 80053; 80061; 82330; 82570; 82805; 82810; 83036; 83605; 83615; 83735; 83880; 84132; 84156; 84443; 84484; 85025; 85027; 85379; 85384; 85610; 85730; 86850; 86900; 86901; 92978; 93005; 93306; 93321; 93325; 93451; 93460; 99152; 99153; 99291; C1725; C1753; C1760; C1769; C1874; C1894; C9600; C9606; J1327; Q9950; Q9967